=== PATIENT | male | born 1970 | race Caucasian/White ===

== ENCOUNTER 2017-09-07 12:11 | Inpatient (IN) | payer MEDICAID, SELFPAY | END 2017-09-08 09:25 | disposition home or self-care (01) | DRG 190 | PROVIDERS: Admitting Provider Internal Medicine Adolescent Medicine; Family Provider Internal Medicine Adolescent Medicine; Visit Provider Internal Medicine Adolescent Medicine | DX: J44.0 Chronic obstructive pulmonary disease with (acute) lower respiratory infection (principal); J15.7 Pneumonia due to Mycoplasma pneumoniae; Z99.81 Dependence on supplemental oxygen; J44.1 Chronic obstructive pulmonary disease with (acute) exacerbation | CPT/HCPCS: 36415; 71020; 80053; 85025; 86738; 87040; 87486; 87581; 87633; 87798; 94640; 94760; G0378; J0456 ==

== ENCOUNTER 2017-09-22 21:15 | Inpatient (IN) | payer MEDICAID, SELFPAY | END 2017-09-25 12:55 | disposition home or self-care (01) | DRG 192 | PROVIDERS: Admitting Provider Internal Medicine Adolescent Medicine; Emergency Provider Emergency Medicine; Family Provider Internal Medicine Adolescent Medicine; Visit Provider Internal Medicine Adolescent Medicine | DX: J44.1 Chronic obstructive pulmonary disease with (acute) exacerbation (principal); Z99.81 Dependence on supplemental oxygen | CPT/HCPCS: 36415; 71010; 71275; 80048; 80053; 80202; 82550; 82553; 82962; 83605; 84484; 85025; 85378; 87040; 87275; 87276; 87486; 87581; 87633; 87798; 93005; 93041; 94640; 94760; 96365; 96367; 96375; 99285; J0692; J1956; J3370; Q9967 ==

== ENCOUNTER 2017-12-08 10:42 | Observation (INO) | payer MEDICAID, SELFPAY ==
--- NOTE | 2017-12-08 10:53 | XR_ITS ---
XR chest 2V COMPARISON: PA and lateral chest 09/07/2017 HISTORY: Cough and fever TECHNIQUE: PA and lateral chest FINDINGS: Accentuated bronchovascular markings are seen in both lower lobes as described previously and consistent with chronic bronchitis. However there is slightly more prominent bronchovascular markings in the left lower lung field within the lingula on the lateral projection suggesting early pneumonic infiltrate. The remainder lung cee are clear. Cardiac size is normal and is no pleural fluid. IMPRESSION: Findings consistent with underlying chronic bronchitis suspect minimal lingular pneumonia.
[2017-12-08 11:31] VITALS: BP 131/83; PULSE 131; RESP 22; TEMP 37.2; O2SAT 95; BMI 23.1
[2017-12-08 11:33] VITALS: BMI 23.1
--- NOTE | 2017-12-08 11:34 | PC.NURSE ---
patient has clothes, and slippers and jacket.
[2017-12-08 12:04] LABS: Basophils % 0.1 % (0.1-2.0); Eosinophils # 0.2 K/mm3 (0.0-0.4); Eosinophils % 1.1 % (0.1-12.0); Hematocrit 47.3 % (42.0-52.0); Hemoglobin 15.1 g/dL (14.1-18.0); Lymphocytes # 1.2 K/mm3 (0.7-4.5); Lymphocytes % 6.1 K/mm3 (10-50); Mean Corpuscular Hemoglobin 29.4 pg (27.0-31.2); Mean Corpuscular Volume 91.9 fl (80-94); Mean Platelet Volume 7.5 fl (7.4-10.4); Monocytes # 1.1 K/mm3 (0.1-1.0); Monocytes % 5.6 % (1.7-9.3); Neutrophils # 16.8 K/mm3 (1.8-7.8); Neutrophils % 87.2 % (37.0-80.0); Platelet Count 252 K/mm3 (142-424); Red Blood Count 5.14 M/mm3 (4.60-6.20); Red Cell Distribution Width 14.4 % (11.5-17.5); White Blood Count 19.3 K/mm3 (4.8-10.8)
[2017-12-08 12:05] LABS: MANUAL DIFFERENTIAL MANUAL DIFFERENTIAL (MANUAL DIFF)
[2017-12-08 12:10] LABS: Magnesium 1.7 mg/dL (1.4-2.2)
[2017-12-08 12:15] LABS: Anion Gap 11.1 mEq/L (5-15); Blood Urea Nitrogen 13 mg/dL (7-18); Carbon Dioxide 28 mmol/L (21.0-32.0); Chloride 103 mmol/L (98-107); Creatine Kinase 58 U/L (39-308); Creatinine Clearance Estimated 101 mL/min (0-300); Creatinine,Serum 0.97 mg/dL (0.70-1.30); Estimated Glomerular Filt Rate 82 ml/min (>60); GFR (African American) 100 ML/MIN (>60); Glucose 100 mg/dL (74-106); Potassium 4.1 mmoL/L (3.5-5.1); Sodium 138 mmol/L (136-145)
[2017-12-08 12:17] LABS: Lactic Acid 0.6 mmol/L (0.4-2.0)
[2017-12-08 12:30] LABS: Eosinophils % 1 % (0-3); Lymphocytes % 7 % (10-50); Monocytes % 3 % (2-9); Neutrophils % 89 % (42-76); Platelet Estimate Normal; RBC Morphology Normal; Total Cells Counted 100
[2017-12-08 13:19] VITALS: PULSE 129; PULSE 138; O2SAT 88
[2017-12-08 13:26] LABS: Mycoplasma Pneumo IGM (Rapid) Non-Reactive (Non-Reactiv)
--- NOTE | 2017-12-08 13:29 | HMH.HP ---
*Admission Date: 12/08/17 *Chief complaint: Cough, fever, shortness of breath *History of present illness: 47 yr old male with history of severe COPD, supplemental oxygen dependent, presented to our office today with complaint of cough, shortness of breath and malaise above baseline. Tmax 101 at home. He reports no relief with xopenex nebulizer treatments at home and that he is scared to go to sleep . On exam he was febrile, tachycardic, with increased work of breathing and was admitted for hospital management of COPD exacerbation, likely due to acute infection. [facility] History Medical History: Reports:: Anxiety, Home Oxygen, Hyperlipidemia, Hypertension Denies:: Cancer, Diabetes Mellitus Type 1, Diabetes Mellitus Type 2, MRSA Other Medical History: Reports: Arthritis Other Surgeries: Yes: Other Amputation: No Fractures: No Comment: removal of kidney stones - *Social History Educational Level: Attended High School Smoking Status: Former smoker Tobacco Type: cigarettes # Packs/Day (cigarettes): 1 Smoking End Date: 2015 Alcohol Intake: never Occupational Status: disabled Housing: house Household Members: spouse, children - Psychiatric History Expresses thoughts of harming self/others: None Suicide Plan Description: No Plan Pschychiatric History:: Reports:: Anxiety, Post Traumatic Stress Disorder, Psychiatric Treatment *Family Hx:: No significant family history Review of Systems - Review of Systems Review of systems:: pertinent systems reviewed and negative unless documented below - Constitutional Reports body ache(s), Reports chills, Reports fatigue, Reports fever(s), Reports weakness - ENT Reports nasal discharge, Reports sore throat - *Cardiovascular Reports shortness of breath - *Respiratory Reports change in phlegm color, Reports chest congestion, Reports cough, Reports shortness of breath, Reports pain with cough, Reports wheezing - *Gastrointestinal Reports vomiting Meds Home Medications Medication Instructions Recorded Confirmed Type Ibuprofen [Ibuprofen 600mg Tab] 600 mg PO TID 12/08/17 12/08/17 History Naproxen [Naprosyn 500mg tablet] 500 mg PO BID 12/08/17 12/08/17 History Allergies Allergy/AdvReac Type Severity Reaction Status Date / Time No Known Drug Allergies Allergy Unknown Unverified 09/19/17 14:46 [NKDA] Exam Vital signs and Labs for Last 24 Hours: Temp Pulse Resp BP Pulse Ox 98.9 F 138 H 22 131/83 88 L 12/08/17 11:31 12/08/17 13:19 12/08/17 11:31 12/08/17 11:31 12/08/17 13:19 Laboratory Results - last 24 hr 12/08/17 11:48: WBC 19.3 H, RBC 5.14, Hgb 15.1, Hct 47.3, MCV 91.9, MCH 29.4, MCHC 32.0, RDW 14.4, Plt Count 252, MPV 7.5, Neut % (Auto) 87.2 H, Lymph % (Auto) 6.1 L, [place] % (Auto) 5.6, Eos % (Auto) 1.1, Baso % (Auto) 0.1, Neut # (Auto) 16.8 H, Lymph # (Auto) 1.2, [place] # (Auto) 1.1 H, Eos # (Auto) 0.2, Baso # (Auto) 0.0, Total Counted 100, Neutrophils % (Manual) 89 H, Lymphocytes % (Manual) 7 L, Monocytes % (Manual) 3, Eosinophils % (Manual) 1, Platelet Estimate Normal, RBC Morphology Normal 12/08/17 11:48: Sodium 138, Potassium 4.1, Chloride 103, Carbon Dioxide 28, Anion Gap 11.1, BUN 13, Creatinine 0.97, Estimated Creat Clear 101, Estimated GFR 82, Est GFR ( Amer) 100, Glucose 100, Total Creatine Kinase 58 12/08/17 11:48: Mycoplasma pneumon IgM Non-reactive 12/08/17 11:48: Magnesium 1.7 12/08/17 11:48: Lactic Acid 0.6 I & O for Last 24 hours: Intake & Output 12/06/17 12/07/17 12/08/17 12/09/17 11:59 11:59 11:59 11:59 Weight 170 lb 1 oz Narrative: Drowsy male upon entering exam room but alert during exam. ENT exam with mild pharyngeal erythema, mild nasal congestion, TM's normal. Neck supple without masses. Heart with RRR, no murmur, tachycardic, normal cap refill. Lungs with diffuse wheezes and rhonchi, use of abdominal muscles, increased respiratory rate. Extremities are without edema. Skin without acute rashes, clammy. Oriented
--- NOTE | 2017-12-08 13:32 | P.HP_ITS ---
*Admission Date: 12/08/17 *Chief complaint: Cough, fever, shortness of breath *History of present illness: 47 yr old male with history of severe COPD, supplemental oxygen dependent, presented to our office today with complaint of cough, shortness of breath and malaise above baseline. Tmax 101 at home. He reports no relief with xopenex nebulizer treatments at home and that he is scared to go to sleep . On exam he was febrile, tachycardic, with increased work of breathing and was admitted for hospital management of COPD exacerbation, likely due to acute infection. [facility] History Medical History: Reports:: Anxiety, Home Oxygen, Hyperlipidemia, Hypertension Denies:: Cancer, Diabetes Mellitus Type 1, Diabetes Mellitus Type 2, MRSA Other Medical History: Reports: Arthritis Other Surgeries: Yes: Other Amputation: No Fractures: No Comment: removal of kidney stones - *Social History Educational Level: Attended High School Smoking Status: Former smoker Tobacco Type: cigarettes # Packs/Day (cigarettes): 1 Smoking End Date: 2015 Alcohol Intake: never Occupational Status: disabled Housing: house Household Members: spouse, children - Psychiatric History Expresses thoughts of harming self/others: None Suicide Plan Description: No Plan Pschychiatric History:: Reports:: Anxiety, Post Traumatic Stress Disorder, Psychiatric Treatment *Family Hx:: No significant family history Review of Systems - Review of Systems Review of systems:: pertinent systems reviewed and negative unless documented below - Constitutional Reports body ache(s), Reports chills, Reports fatigue, Reports fever(s), Reports weakness - ENT Reports nasal discharge, Reports sore throat - *Cardiovascular Reports shortness of breath - *Respiratory Reports change in phlegm color, Reports chest congestion, Reports cough, Reports shortness of breath, Reports pain with cough, Reports wheezing - *Gastrointestinal Reports vomiting Meds Home Medications Medication Instructions Recorded Confirmed Type Ibuprofen [Ibuprofen 600mg Tab] 600 mg PO TID 12/08/17 12/08/17 History Naproxen [Naprosyn 500mg tablet] 500 mg PO BID 12/08/17 12/08/17 History Allergies Allergy/AdvReac Type Severity Reaction Status Date / Time No Known Drug Allergies Allergy Unknown Unverified 09/19/17 14:46 [NKDA] Exam Vital signs and Labs for Last 24 Hours: Temp Pulse Resp BP Pulse Ox 98.9 F 138 H 22 131/83 88 L 12/08/17 11:31 12/08/17 13:19 12/08/17 11:31 12/08/17 11:31 12/08/17 13:19 Laboratory Results - last 24 hr 12/08/17 11:48: WBC 19.3 H, RBC 5.14, Hgb 15.1, Hct 47.3, MCV 91.9, MCH 29.4, MCHC 32.0, RDW 14.4, Plt Count 252, MPV 7.5, Neut % (Auto) 87.2 H, Lymph % (Auto ) 6.1 L, [place] % (Auto) 5.6, Eos % (Auto) 1.1, Baso % (Auto) 0.1, Neut # (Auto) 16.8 H, Lymph # (Auto) 1.2, [place] # (Auto) 1.1 H, Eos # (Auto) 0.2, Baso # (Auto ) 0.0, Total Counted 100, Neutrophils % (Manual) 89 H, Lymphocytes % (Manual) 7 L, Monocytes % (Manual) 3, Eosinophils % (Manual) 1, Platelet Estimate Normal, RBC Morphology Normal 12/08/17 11:48: Sodium 138, Potassium 4.1, Chloride 103, Carbon Dioxide 28, Anion Gap 11.1, BUN 13, Creatinine 0.97, Estimated Creat Clear 101, Estimated GFR 82, Est GFR ( Amer) 100, Glucose 100, Total Creatine Kinase 58 12/08/17 11:48: Mycoplasma pneumon IgM Non-reactive 12/08/17 11:48: Magnesium 1.7 12/08/17 11:48: Lactic Acid 0.6 I & O for Last 24 hours: Intake & Ou
[2017-12-08 16:00] VITALS: BP 129/76; PULSE 110; RESP 20; TEMP 36.7; O2SAT 93
[2017-12-08 16:12] LABS: Adenovirus,PCR Not Detected (NotDetected); Bordetella Pertussis Not Detected (NotDetected); Chlamydophila Pneumoniae, PCR Not Detected (NotDetected); Coronavirus 229E Not Detected (NotDetected); Coronavirus NL63 Not Detected (NotDetected); Coronavirus OC43 Not Detected (NotDetected); Coronovirus HKU1,PCR Not Detected (NotDetected); Human Metapneumovirus Not Detected (NotDetected); Influenza A, PCR Not Detected (NotDetected); Influenza AH1, 2009 Not Detected (NotDetected); Influenza AH1, PCR Not Detected (NotDetected); Influenza AH3,PCR Not Detected (NotDetected); Influenza B, PCR Not Detected (NotDetected); Mycoplasma Pneumoniae, PCR Not Detected (NotDected); Parainfluenza 1, PCR Not Detected (NotDetected); Parainfluenza 2, PCR Not Detected (NotDetected); Parainfluenza 3, PCR Not Detected (NotDetected); Parainfluenza 4, PCR Not Detected (NotDetected); Respiratory Syncytial Virus Not Detected (NotDetected); Rhinovirus/Enterovirus Not Detected (NotDetected)
--- NOTE | 2017-12-08 17:48 | PC.NURSE ---
PT IS ALERT AND ORIENTED X4. NO C/O PAIN. NO S/S OF DISTRESS NOTED. VSS. PT REFUSED ABG. IV IS SECURE, PATENT ADND INFUSING IVF. SAFETY MEASURES IN PLACE. WILL CONTINUE TO MONITOR.
[2017-12-08 19:28] VITALS: PULSE 110; O2SAT 95
[2017-12-08 20:00] VITALS: BP 118/76; PULSE 111; RESP 18; TEMP 37.2; O2SAT 91
--- NOTE | 2017-12-08 23:23 | PC.NURSE ---
at 2137 MD notified of pt increased anxiety and pain in the right lower abdominal area, no new orders obtained at this time.
[2017-12-09] VITALS (7 sets, daily range): BP systolic 105–117; BP diastolic 66–77; PULSE 80–101; RESP 16–20; TEMP 36.4–37; O2SAT 89–95
--- NOTE | 2017-12-09 03:00 | PC.NURSE ---
no changes noted from previous assessment, pt A&O x 3, pt appears very anxious about care, pt c/o pain in the lower right quadrant radiating to the lower back, he states he has had kidney stones before and the pain feels similar, pt has rested brief periods this shift, pt states some SOA, pt maintaining O2 sats at or above 90 on 2 L NC, rhonchi noted to auscultation, bowel sounds are active, pt is resting quietly at this time, no acute distress noted, call light in reach, will continue to monitor.
--- NOTE | 2017-12-09 07:07 | PC.NURSE ---
report given to A Bout RN
[2017-12-09 07:12] LABS: Basophils % 0.3 % (0.1-2.0); Eosinophils # 0.3 K/mm3 (0.0-0.4); Eosinophils % 2.3 % (0.1-12.0); Hematocrit 42.7 % (42.0-52.0); Lymphocytes # 1.7 K/mm3 (0.7-4.5); Lymphocytes % 14.2 K/mm3 (10-50); Mean Corpuscular HGB Conc 31.7 g/dL (31.8-35.4); Mean Corpuscular Hemoglobin 29.4 pg (27.0-31.2); Mean Corpuscular Volume 92.9 fl (80-94); Mean Platelet Volume 7.6 fl (7.4-10.4); Monocytes # 0.9 K/mm3 (0.1-1.0); Monocytes % 7.6 % (1.7-9.3); Neutrophils # 9.1 K/mm3 (1.8-7.8); Neutrophils % 75.5 % (37.0-80.0); Platelet Count 214 K/mm3 (142-424); Red Blood Count 4.59 M/mm3 (4.60-6.20); Red Cell Distribution Width 14.3 % (11.5-17.5); White Blood Count 12.1 K/mm3 (4.8-10.8)
[2017-12-09 07:17] LABS: Anion Gap 8.1 mEq/L (5-15); Blood Urea Nitrogen 12 mg/dL (7-18); Carbon Dioxide 32 mmol/L (21.0-32.0); Chloride 106 mmol/L (98-107); Creatinine Clearance Estimated 93 mL/min (0-300); Creatinine,Serum 1.05 mg/dL (0.70-1.30); Estimated Glomerular Filt Rate 75 ml/min (>60); GFR (African American) 91 ML/MIN (>60); Glucose 84 mg/dL (74-106); Potassium 4.1 mmoL/L (3.5-5.1); Sodium 142 mmol/L (136-145)
[2017-12-09 07:25] LABS: Hemoglobin 13.6 g/dL (14.1-18.0)
--- NOTE | 2017-12-09 08:19 | CT_ITS ---
CT abdomen pelvis wo con Ordering Physician: Min Shah MD Patient Age: 47 years: Male HISTORY: ITS.REASON: stone protocol Right-sided abdominal pain with nausea. TECHNIQUE: Helical CT scanning performed the abdomen and pelvis with no oral nor IV contrast utilized. Sagittal coronal reconstructions on CT workstation. COMPARISON :Previous CT abdomen and pelvis 02/05/2015 FINDINGS ======== LUNG BASES,. Airway thickening with slight additional interstitial prominence. Suspect a subtle interstitial infiltrate or edema. Warrants correlation with a follow-up chest film. Yesterday's chest film suggested a increased interstitial prominence since prior studies of which may indeed reflect interstitial pneumonitis or edema. No cardiomegaly or overt CHF felt to be present however on yesterday chest film. The heart is normal in size no no pleural effusions. Linear atelectasis at the lingula anteriorly right middle lobe also slightly more evident today. There is suggestion of a subtle small patchy area of infiltrate at the periphery the right lower lobe on axial image 5 and 6. 2 abdomen/pelvis. Lack of oral and IV contrast decreases sensitivity. Liver with slightly subtle changes which yields a slightly inhomogeneous appearance. If elevated LFTs and may want to consider a follow-up with contrast. Spleen unremarkable. Normal size. Pelvis calcifications Pancreas. Normal size unremarkable. Gallbladder. Partially contracted no gallstones no biliary ductal dilatation Kidneys. Numerous small dense punctate calculi scattered throughout both kidneys. Nonobstructive. The largest calculi measure up to 5 mm .. Majority of these calculi however measuring less than 4 mm. But no hydronephrosis currently. No additional acute renal findings. Ureters unremarkable. Bladder upper normal wall thickness. Prostate unremarkable. Pelvis a satisfactory. No fluid. GI tract. Large bowel:Moderate stool throughout right colon right and transverse colon. Minimal stool left colon and rectosigmoid. Upper normal wall thickness at sigmoid colon likely reflecting baseline appearance also upper normal wall thickness at the right colon. May reflect lack of distention... No bowel dilatation or obstruction. Terminal ileum appears normal. Appendix not well visualized partially obscured by adjacent noncontrast bowel loops. It appears normal to upper normal in caliber. No associated inflammation. If there should be increased clinical concern regarding the appendix a follow-up study with oral and IV contrast to be suggested to more optimally visualized. However no significantly suspicious findings for acute appendicitis currently. Small bowel. Moderate fluid throughout a few small air-fluid levels but upper normal in caliber. No bowel dilatation nor obstruction. Osseous structures: no lesion. Dextroscoliosis thoracolumbar spine with marked disc space narrowing L1/2 is again observed and progressive since 2015 lower abdominal aorta with diffuse calcification but no dilatation. No aneurysm. No retroperitoneal nor mesenteric nor pelvic nor inguinal adenopathy. note: This study was dictated with a voice-recognition system. There may be typographical error is related to such. If they are significant please notify us for corrections IMPRESSION 1. Limited views the lung bases demonstrate Mild airway thickening with suspect subtle diffuse interstitial infiltrate or edema; with suggestion subtle patchy areas of infiltrate periphery of RLL. 2. No acute findings abdomen or pelvis.. 3. Numerous dense punctate calculi in throughout both kidneys again seen but no obstructive uropathy. 4. Appendix not optimally seen but no good evidence of appendicitis on this noncontrast study. (. If appendix becomes of progr
--- NOTE | 2017-12-09 08:20 | HMH.ACPN2 ---
Internal Medicine - PN: Subj *Date: 12/09/17 *Time: 08:20 Interval history: Patient feels a little better from a respiratory perspective. Had several issues with anxiety and some angry outburst yesterday and threatened to leave AGAINST MEDICAL ADVICE a couple of times but did stay through the night and feels somewhat better this morning. He does have some right-sided flank pain and reports some dark urine. He reports the pain radiates into his testicle, it has been going on for about a week but he did not mention it yesterday because he was so concerned about his breathing. Exam Vital signs and Labs for Last 24 Hours: Temp Pulse Resp BP Pulse Ox 98.6 F 80 20 114/77 89 L 12/09/17 07:50 12/09/17 07:50 12/09/17 07:50 12/09/17 07:50 12/09/17 06:31 Laboratory Results - last 24 hr 12/08/17 11:48: WBC 19.3 H, RBC 5.14, Hgb 15.1, Hct 47.3, MCV 91.9, MCH 29.4, MCHC 32.0, RDW 14.4, Plt Count 252, MPV 7.5, Neut % (Auto) 87.2 H, Lymph % (Auto) 6.1 L, [place] % (Auto) 5.6, Eos % (Auto) 1.1, Baso % (Auto) 0.1, Neut # (Auto) 16.8 H, Lymph # (Auto) 1.2, [place] # (Auto) 1.1 H, Eos # (Auto) 0.2, Baso # (Auto) 0.0, Total Counted 100, Neutrophils % (Manual) 89 H, Lymphocytes % (Manual) 7 L, Monocytes % (Manual) 3, Eosinophils % (Manual) 1, Platelet Estimate Normal, RBC Morphology Normal 12/08/17 11:48: Sodium 138, Potassium 4.1, Chloride 103, Carbon Dioxide 28, Anion Gap 11.1, BUN 13, Creatinine 0.97, Estimated Creat Clear 101, Estimated GFR 82, Est GFR ( Amer) 100, Glucose 100, Total Creatine Kinase 58 12/08/17 11:48: Mycoplasma pneumon IgM Non-reactive 12/08/17 11:48: Magnesium 1.7 12/08/17 11:48: Lactic Acid 0.6 12/08/17 16:00: Chlamy pneumoniae PCR Not detected, Adenovirus (PCR) Not detected, B.parapertussis DNA PCR Not detected, Coronavirus OC43 (PCR) Not detected, Coronavirus HKU1 (PCR) Not detected, Coronavirus 229E (PCR) Not detected, Coronavirus NL63 (PCR) Not detected, Human Metapneumovir PCR Not detected, Influenza A (H1) PCR Not detected, Influ A (H1N1/09) PCR Not detected, Influenza A (H3) PCR Not detected, Influenza Type A (PCR) Not detected, Influenza Type B (PCR) Not detected, M. pneumoniae (PCR) Not detected, Parainfluenza 1 (PCR) Not detected, Parainfluenza 2 (PCR) Not detected, Parainfluenza 3 (PCR) Not detected, Parainfluenza 4 (PCR) Not detected, RSV (PCR) Not detected, Entero/Rhino (PCR) Not detected 12/09/17 06:37: WBC 12.1 H D, RBC 4.59 L, Hgb 13.6 L, Hct 42.7, MCV 92.9, MCH 29.4, MCHC 31.7 L, RDW 14.3, Plt Count 214, MPV 7.6, Neut % (Auto) 75.5, Lymph % (Auto) 14.2, [place] % (Auto) 7.6, Eos % (Auto) 2.3, Baso % (Auto) 0.3, Neut # (Auto) 9.1 H, Lymph # (Auto) 1.7, [place] # (Auto) 0.9, Eos # (Auto) 0.3, Baso # (Auto) 0.0 12/09/17 06:37: Sodium 142, Potassium 4.1, Chloride 106, Carbon Dioxide 32, Anion Gap 8.1, BUN 12, Creatinine 1.05, Estimated Creat Clear 93, Estimated GFR 75, Est GFR ( Amer) 91, Glucose 84 I & O for Last 24 hours: Intake & Output 12/06/17 12/07/17 12/08/17 12/09/17 11:59 11:59 11:59 11:59 Intake Total 1516 / 1516 Balance 1516 / 1516 Weight 170 lb 1 oz 170 lb 3 oz Narrative: Patient is pleasant, talkative, lungs continue to have rhonchi and expiratory wheezes throughout his lung cee with bibasilar crackles. Heart rate regular. Abdomen is soft but he does have flank tenderness on the right side without rebound or guarding. Minimal CVA pain on the right as well. No leg edema. Assessment and Plan (1) COPD with exacerbation Current visit: Yes Status: Acute Category: Medical Code(s): J44.1 - Chronic obstructive pulmonary disease with (acute) exacerbation Slight improvement. I have asked respiratory to induce a sputum culture/collection. Continue antipseudomonal coverage given his end-stage emphysema. (2) Fever Current visit: Yes Status: Acute Category: Medical Code(s): R50.9 - Fever, unspecified (3) Leukocytosis Current visit: Yes Status: Acute Categor
--- NOTE | 2017-12-09 08:23 | P.PN_ITS ---
Internal Medicine - PN: Subj *Date: 12/09/17 *Time: 08:20 Interval history: Patient feels a little better from a respiratory perspective. Had several issues with anxiety and some angry outburst yesterday and threatened to leave AGAINST MEDICAL ADVICE a couple of times but did stay through the night and feels somewhat better this morning. He does have some right-sided flank pain and reports some dark urine. He reports the pain radiates into his testicle, it has been going on for about a week but he did not mention it yesterday because he was so concerned about his breathing. Exam Vital signs and Labs for Last 24 Hours: Temp Pulse Resp BP Pulse Ox 98.6 F 80 20 114/77 89 L 12/09/17 07:50 12/09/17 07:50 12/09/17 07:50 12/09/17 07:50 12/09/17 06:31 Laboratory Results - last 24 hr 12/08/17 11:48: WBC 19.3 H, RBC 5.14, Hgb 15.1, Hct 47.3, MCV 91.9, MCH 29.4, MCHC 32.0, RDW 14.4, Plt Count 252, MPV 7.5, Neut % (Auto) 87.2 H, Lymph % (Auto ) 6.1 L, [place] % (Auto) 5.6, Eos % (Auto) 1.1, Baso % (Auto) 0.1, Neut # (Auto) 16.8 H, Lymph # (Auto) 1.2, [place] # (Auto) 1.1 H, Eos # (Auto) 0.2, Baso # (Auto ) 0.0, Total Counted 100, Neutrophils % (Manual) 89 H, Lymphocytes % (Manual) 7 L, Monocytes % (Manual) 3, Eosinophils % (Manual) 1, Platelet Estimate Normal, RBC Morphology Normal 12/08/17 11:48: Sodium 138, Potassium 4.1, Chloride 103, Carbon Dioxide 28, Anion Gap 11.1, BUN 13, Creatinine 0.97, Estimated Creat Clear 101, Estimated GFR 82, Est GFR ( Amer) 100, Glucose 100, Total Creatine Kinase 58 12/08/17 11:48: Mycoplasma pneumon IgM Non-reactive 12/08/17 11:48: Magnesium 1.7 12/08/17 11:48: Lactic Acid 0.6 12/08/17 16:00: Chlamy pneumoniae PCR Not detected, Adenovirus (PCR) Not detected, B.parapertussis DNA PCR Not detected, Coronavirus OC43 (PCR) Not detected, Coronavirus HKU1 (PCR) Not detected, Coronavirus 229E (PCR) Not detected, Coronavirus NL63 (PCR) Not detected, Human Metapneumovir PCR Not detected, Influenza A (H1) PCR Not detected, Influ A (H1N1/09) PCR Not detected , Influenza A (H3) PCR Not detected, Influenza Type A (PCR) Not detected, Influenza Type B (PCR) Not detected, M. pneumoniae (PCR) Not detected, Parainfluenza 1 (PCR) Not detected, Parainfluenza 2 (PCR) Not detected, Parainfluenza 3 (PCR) Not detected, Parainfluenza 4 (PCR) Not detected, RSV (PCR ) Not detected, Entero/Rhino (PCR) Not detected 12/09/17 06:37: WBC 12.1 H D, RBC 4.59 L, Hgb 13.6 L, Hct 42.7, MCV 92.9, MCH 29.4, MCHC 31.7 L, RDW 14.3, Plt Count 214, MPV 7.6, Neut % (Auto) 75.5, Lymph % (Auto) 14.2, [place] % (Auto) 7.6, Eos % (Auto) 2.3, Baso % (Auto) 0.3, Neut # ( Auto) 9.1 H, Lymph # (Auto) 1.7, [place] # (Auto) 0.9, Eos # (Auto) 0.3, Baso # ( Auto) 0.0 12/09/17 06:37: Sodium 142, Potassium 4.1, Chloride 106, Carbon Dioxide 32, Anion Gap 8.1, BUN 12, Creatinine 1.05, Estimated Creat Clear 93, Estimated GFR 75, Est GFR ( Amer) 91, Glucose 84 I & O for Last 24 hours: Intake & Output 12/06/17 12/07/17 12/08/17 12/09/17 11:59 11:59 11:59 11:59 Intake Total 1516 / 1516 Balance 1516 / 1516 Weight 170 lb 1 oz 170 lb 3 oz Narrative: Patient is pleasant, talkative, lungs continue to have rhonchi and expiratory wheezes throughout his lung cee with bibasilar crackles. Heart rate regular. Abdomen is soft but he does have flank tenderness on the right side without rebound or guarding. Minimal CVA pain on the right as well. No leg edema. Assessment and Plan (1) COPD with exacerbation Current visit: Yes Status: Acute Category: Medical Code(s): J44.1 - C
--- NOTE | 2017-12-09 10:55 | P.CONPHA_ITS ---
[facility] Pharmacy VTE Monitoring - Patient Demographics Admission date: 12/08/17 Report Date: 12/09/17 Time: 10:55 Allergies/Adverse Reactions: Patient Allergies No Known Drug Allergies [NKDA] Allergy (Unknown, Verified 12/08/17 19:59) Height: 1.83 m Weight: 77.196 kg Patient Problems: Current Active Problems COPD with exacerbation (Acute) Fever (Acute) Leukocytosis (Acute) Right flank pain (Acute) Depression with anxiety (Chronic) - VTE Risk Labs: VTE Related Lab Results Hgb 13.6 g/dL (14.1-18.0) L 12/09/17 06:37 Hct 42.7 % (42.0-52.0) 12/09/17 06:37 Plt Count 214 K/mm3 (142-424) 12/09/17 06:37 BUN 12 mg/dL (7-18) 12/09/17 06:37 Creatinine 1.05 mg/dL (0.70-1.30) 12/09/17 06:37 Estimated Creat Clear 93 mL/min (0-300) 12/09/17 06:37 Was VTE Risk Assessment Performed: No VTE Risk Level: Very Low Risk - Prophylaxis VTE Prophylaxis Ordered?: Yes Types of VTE Prophylaxis: TEDS Knee High Location of Applied Device: Bilateral Lower Extremeties
[2017-12-09 13:15] LABS: Microscopic, Urine URINE MICROSCOPIC (MICROSCOPIC)
[2017-12-09 13:17] LABS: Appearance,Urine CLEAR (Clear); Bilirubin,Urine Negative (Negative); Blood, Urine Negative (Negative); Color,Urine YELLOW (Yellow); Glucose,Urine (UA) Negative (Negative); Ketones,Urine Negative (Negative); Leukocyte Esterase,Urine Negative (Negative); Nitrate,Urine Negative (Negative); Protein,Urine Negative (Negative); Urobilinogen,Urine >=8.0 EU/dl (0.2)
[2017-12-09 13:38] LABS: Mucus,Urine Trace /lpf; Squamous Epithelial Cell,Urine Occasional #/hpf (0-5)
[2017-12-10] VITALS (11 sets, daily range): BP systolic 124–158; BP diastolic 67–96; PULSE 65–110; RESP 16–22; TEMP 36.6–36.9; O2SAT 91–95
--- NOTE | 2017-12-10 03:20 | PC.NURSE ---
no changes noted from previous assessment, pt c/o pain in the right flank area 03/11, pt states he is SOA with activity, pt maintaining O2 sats at or above 90 on 2 L NC, rhonchi noted to auscultation, bowel sounds are active, pt has slept most of shift, pt currently resting in bed with eyes closed, no acute distress noted, call light in reach, will continue to monitor.
[2017-12-10 06:06] LABS: Basophils % 0.4 % (0.1-2.0); Eosinophils # 0.4 K/mm3 (0.0-0.4); Eosinophils % 3.5 % (0.1-12.0); Hematocrit 42.6 % (42.0-52.0); Hemoglobin 13.2 g/dL (14.1-18.0); Lymphocytes % 19.7 K/mm3 (10-50); Mean Corpuscular HGB Conc 31.1 g/dL (31.8-35.4); Mean Corpuscular Hemoglobin 28.9 pg (27.0-31.2); Mean Corpuscular Volume 93.1 fl (80-94); Mean Platelet Volume 7.5 fl (7.4-10.4); Monocytes # 0.6 K/mm3 (0.1-1.0); Monocytes % 6.2 % (1.7-9.3); Neutrophils # 7.3 K/mm3 (1.8-7.8); Neutrophils % 70.3 % (37.0-80.0); Platelet Count 228 K/mm3 (142-424); Red Blood Count 4.57 M/mm3 (4.60-6.20); Red Cell Distribution Width 14.5 % (11.5-17.5); White Blood Count 10.3 K/mm3 (4.8-10.8)
[2017-12-10 06:20] LABS: Blood Urea Nitrogen 9 mg/dL (7-18); Carbon Dioxide 32 mmol/L (21.0-32.0); Chloride 109 mmol/L (98-107); Creatinine Clearance Estimated 97 mL/min (0-300); Creatinine,Serum 1.02 mg/dL (0.70-1.30); Estimated Glomerular Filt Rate 78 ml/min (>60); GFR (African American) 94 ML/MIN (>60); Glucose 96 mg/dL (74-106); Sodium 143 mmol/L (136-145)
--- NOTE | 2017-12-10 07:15 | PC.NURSE ---
report given to A Bout
--- NOTE | 2017-12-10 08:40 | P.PN_ITS ---
Internal Medicine - PN: Subj *Date: 12/10/17 *Time: 08:39 Interval history: Patient continues to struggle with some right-sided flank pain. His breathing is somewhat better. Exam Vital signs and Labs for Last 24 Hours: Temp Pulse Resp BP Pulse Ox 98.5 F 110 H 22 124/71 94 L 12/10/17 07:54 12/10/17 07:54 12/10/17 07:54 12/10/17 07:54 12/10/17 06:34 Laboratory Results - last 24 hr 12/09/17 12:55: Urine Color Yellow, Urine Appearance Clear, Urine pH 7.0, Ur Specific [place] 1.010, Urine Protein Negative, Urine Glucose (UA) Negative, Urine Ketones Negative, Urine Blood Negative, Urine Nitrate Negative, Urine Bilirubin Negative, Urine Urobilinogen >=8.0, Ur Leukocyte Esterase Negative, Ur Squamous Epith Cells Occasional, Urine Mucus Trace 12/10/17 05:55: WBC 10.3, RBC 4.57 L, Hgb 13.2 L, Hct 42.6, MCV 93.1, MCH 28.9, MCHC 31.1 L, RDW 14.5, Plt Count 228, MPV 7.5, Neut % (Auto) 70.3, Lymph % (Auto ) 19.7, [place] % (Auto) 6.2, Eos % (Auto) 3.5, Baso % (Auto) 0.4, Neut # (Auto) 7.3, Lymph # (Auto) 2.0, [place] # (Auto) 0.6, Eos # (Auto) 0.4, Baso # (Auto) 0.0 12/10/17 05:55: Sodium 143, Potassium 4.0, Chloride 109 H, Carbon Dioxide 32, Anion Gap 6.0, BUN 9, Creatinine 1.02, Estimated Creat Clear 97, Estimated GFR 78, Est GFR ( Amer) 94, Glucose 96 I & O for Last 24 hours: Intake & Output 12/07/17 12/08/17 12/09/17 12/10/17 11:59 11:59 11:59 12:59 Intake Total 1666 / 1666 2963 / 2963 Balance 1666 / 1666 2963 / 2963 Weight 170 lb 1 oz 170 lb 3 oz 172 lb 1 oz Microbiology Reports for the Last 24 Hours: Microbiology 12/09/17 09:37 Sputum - Expectorated Sputum Gram Stain - Final 12/09/17 09:37 Sputum - Expectorated Sputum Sputum Culture - Preliminary 12/08/17 11:53 Blood Blood Culture - Preliminary NO GROWTH AFTER 24 HOURS 12/08/17 11:48 Blood Blood Culture - Preliminary NO GROWTH AFTER 24 HOURS Narrative: Bilateral air movement is improved bilaterally. Overall it still compromised with some tight wheezing, along with some minimal rhonchi. Abdomen soft, flank tenderness is unchanged. Heart rate regular. No perfusion deficits. Assessment and Plan (1) COPD with exacerbation Current visit: Yes Status: Acute Category: Medical Code(s): J44.1 - Chronic obstructive pulmonary disease with (acute) exacerbation (2) Fever Current visit: Yes Status: Acute Category: Medical Code(s): R50.9 - Fever , unspecified (3) Leukocytosis Current visit: Yes Status: Acute Category: Medical Code(s): D72.829 - Elevated white blood cell count, unspecified (4) Right flank pain Current visit: Yes Status: Acute Category: Medical Code(s): R10.9 - Unspecified abdominal pain (5) Depression with anxiety Current visit: Yes Status: Chronic Category: Medical Code(s): F41.8 - Other specified anxiety disorders - Assessment and plan all Dx Assessment and Plan for all problems:: Status improving. CT scan reviewed showing nonobstructive nephrolithiasis. Toradol for pain. Continue plan for lung disease/pneumonia.
[2017-12-11 03:18] VITALS: O2SAT 93
--- NOTE | 2017-12-11 03:47 | PC.NURSE ---
no changes noted from previous assessment, pt states his breathing is better and denies pain, he states he feels some better today, rhonchi and wheezing noted to auscultation, pt currently on 2L NC, O2 sats remain at or above 90, bowel sounds are active, pt has rested well this shift, no acute distress noted at this time, call light in reach, will continue to monitor.
[2017-12-11 04:00] VITALS: BP 130/83; PULSE 99; RESP 20; TEMP 36.8; O2SAT 90
[2017-12-11 06:07] VITALS: PULSE 106; O2SAT 88
--- NOTE | 2017-12-11 06:18 | PC.NURSE ---
report given to Tez Cao Rn
[2017-12-11 07:23] LABS: Anion Gap 9.6 mEq/L (5-15); Blood Urea Nitrogen 7 mg/dL (7-18); Carbon Dioxide 32 mmol/L (21.0-32.0); Chloride 108 mmol/L (98-107); Creatinine Clearance Estimated 95 mL/min (0-300); Creatinine,Serum 1.05 mg/dL (0.70-1.30); Estimated Glomerular Filt Rate 75 ml/min (>60); GFR (African American) 91 ML/MIN (>60); Glucose 88 mg/dL (74-106); Potassium 3.6 mmoL/L (3.5-5.1); Sodium 146 mmol/L (136-145)
[2017-12-11 08:01] LABS: Basophils % 0.3 % (0.1-2.0); Eosinophils # 0.3 K/mm3 (0.0-0.4); Eosinophils % 3.2 % (0.1-12.0); Hematocrit 44.6 % (42.0-52.0); Lymphocytes # 2.1 K/mm3 (0.7-4.5); Lymphocytes % 23.7 K/mm3 (10-50); Mean Corpuscular HGB Conc 31.4 g/dL (31.8-35.4); Mean Corpuscular Volume 92.3 fl (80-94); Mean Platelet Volume 7.6 fl (7.4-10.4); Monocytes # 0.6 K/mm3 (0.1-1.0); Neutrophils # 5.9 K/mm3 (1.8-7.8); Neutrophils % 65.8 % (37.0-80.0); Platelet Count 261 K/mm3 (142-424); Red Blood Count 4.83 M/mm3 (4.60-6.20); Red Cell Distribution Width 14.4 % (11.5-17.5); White Blood Count 8.9 K/mm3 (4.8-10.8)
--- NOTE | 2017-12-11 08:44 | HMH.DCSUM ---
General - General Admission date: 12/08/17 Discharge date: 12/11/17 HPI HPI: 47 yr old male with history of severe COPD, supplemental oxygen dependent, presented to our office today with complaint of cough, shortness of breath and malaise above baseline. Tmax 101 at home. He reports no relief with xopenex nebulizer treatments at home and that he is scared to go to sleep . On exam he was febrile, tachycardic, with increased work of breathing and was admitted for hospital management of COPD exacerbation, likely due to acute infection. Hospital Course Hospital Course: Patient was admitted, placed on dual coverage for Pseudomonas therapy. He did well with this although continue to have his baseline dyspnea and wheezing. He also developed some right flank pain. Was found to have nonobstructive kidney stones. Toradol was ineffective with pain but he was able to pass urine and had no significant urine abnormalities. Sputum culture was nondiagnostic. He improved to his baseline, and this morning was wishing to go home. He will be discharged home on Augmentin as prescribed, prednisone, short-term follow-up in my office. Objective Vital signs: Temp Pulse Resp BP Pulse Ox 98.2 F 106 H 20 130/83 88 L 12/11/17 04:00 12/11/17 06:07 12/11/17 04:00 12/11/17 04:00 12/11/17 06:07 Narrative: This morning patient is awake, alert, eating breakfast. Lungs have rhonchi and some minimal wheezing but much clearer, no areas of crackles. Much less dyspneic. No perfusion deficits, heart rate regular. Normal skin turgor. Abdomen soft. Results Labs on day of discharge: Labs from last 24 hours 12/11/17 12/11/17 06:37 06:37 WBC 8.9 RBC 4.83 Hgb 14.0 L Hct 44.6 MCV 92.3 MCH 29.0 MCHC 31.4 L RDW 14.4 Plt Count 261 MPV 7.6 Neut % (Auto) 65.8 Lymph % (Auto) 23.7 [place] % (Auto) 7.0 Eos % (Auto) 3.2 Baso % (Auto) 0.3 Neut # (Auto) 5.9 Lymph # (Auto) 2.1 [place] # (Auto) 0.6 Eos # (Auto) 0.3 Baso # (Auto) 0.0 Sodium 146 H Potassium 3.6 Chloride 108 H Carbon Dioxide 32 Anion Gap 9.6 BUN 7 Creatinine 1.05 Estimated Creat Clear 95 Estimated GFR 75 Est GFR ( Amer) 91 Glucose 88 Preliminary micro results at discharge 12/08/17 11:53 Blood Culture - Preliminary Blood NO GROWTH AFTER 48 HOURS 12/08/17 11:48 Blood Culture - Preliminary Blood NO GROWTH AFTER 48 HOURS DS: Diagnosis - Discharge Diagnosis (1) COPD with exacerbation Status: Acute (2) Fever Status: Acute (3) Leukocytosis Status: Acute (4) Right flank pain Status: Acute (5) Depression with anxiety Status: Chronic Discharge Plan - Patient Discharge Instructions ACTIVITY: Continue current activity DIET: continue same diet - Follow up Plan Follow up with: iMn Shah MD [Primary Care Provider] - 12/15/17 Disposition: Home, Self-Long Term Medications: Home Medications Medication Instructions Recorded Confirmed Type Famotidine [Pepcid] 20 mg PO BID 12/08/17 12/08/17 History Fluticasone/Vilanterol [Breo 1 each IH DAILY 12/08/17 12/08/17 History Ellipta 200-25 Mcg INH] Gabapentin [Neurontin 600mg 600 mg PO TID 12/08/17 12/08/17 History tablet] Ibuprofen [Ibuprofen 600mg Tab] 600 mg PO TID 12/08/17 12/08/17 History Levalbuterol HCl [Xopenex 3 ml INHALATION Q6 12/08/17 12/09/17 History 1.25mg/3mL neb] Naproxen [Naprosyn 500mg tablet] 500 mg PO BID 12/08/17 12/08/17 History Quetiapine Fumarate [Seroquel] 200 mg PO HS 12/08/17 12/08/17 History Duloxetine HCl 60 mg PO DAILY 12/09/17 12/09/17 History Tiotropium [place] [Spiriva 1 puff IH DAILY 12/09/17 12/09/17 History 18mcg/puff inhaler] Prescriptions/Medication Reconciliation: New Amoxicillin/Potassium Clav [Augmentin 875-125 Tablet] 1 tab PO Q12H 7 Days #14 tab predniSONE [Prednisone 20mg Tab] 20 mg PO DAILY 10 Days #5 tab Cont
--- NOTE | 2017-12-11 08:48 | P.DS_ITS ---
General - General Admission date: 12/08/17 Discharge date: 12/11/17 HPI HPI: 47 yr old male with history of severe COPD, supplemental oxygen dependent, presented to our office today with complaint of cough, shortness of breath and malaise above baseline. Tmax 101 at home. He reports no relief with xopenex nebulizer treatments at home and that he is scared to go to sleep . On exam he was febrile, tachycardic, with increased work of breathing and was admitted for hospital management of COPD exacerbation, likely due to acute infection. Hospital Course Hospital Course: Patient was admitted, placed on dual coverage for Pseudomonas therapy. He did well with this although continue to have his baseline dyspnea and wheezing. He also developed some right flank pain. Was found to have nonobstructive kidney stones. Toradol was ineffective with pain but he was able to pass urine and had no significant urine abnormalities. Sputum culture was nondiagnostic. He improved to his baseline, and this morning was wishing to go home. He will be discharged home on Augmentin as prescribed, prednisone, short-term follow-up in my office. Objective Vital signs: Temp Pulse Resp BP Pulse Ox 98.2 F 106 H 20 130/83 88 L 12/11/17 04:00 12/11/17 06:07 12/11/17 04:00 12/11/17 04:00 12/11/17 06:07 Narrative: This morning patient is awake, alert, eating breakfast. Lungs have rhonchi and some minimal wheezing but much clearer, no areas of crackles. Much less dyspneic. No perfusion deficits, heart rate regular. Normal skin turgor. Abdomen soft. Results Labs on day of discharge: Labs from last 24 hours 12/11/17 12/11/17 06:37 06:37 WBC 8.9 RBC 4.83 Hgb 14.0 L Hct 44.6 MCV 92.3 MCH 29.0 MCHC 31.4 L RDW 14.4 Plt Count 261 MPV 7.6 Neut % (Auto) 65.8 Lymph % (Auto) 23.7 [place] % (Auto) 7.0 Eos % (Auto) 3.2 Baso % (Auto) 0.3 Neut # (Auto) 5.9 Lymph # (Auto) 2.1 [place] # (Auto) 0.6 Eos # (Auto) 0.3 Baso # (Auto) 0.0 Sodium 146 H Potassium 3.6 Chloride 108 H Carbon Dioxide 32 Anion Gap 9.6 BUN 7 Creatinine 1.05 Estimated Creat Clear 95 Estimated GFR 75 Est GFR ( Amer) 91 Glucose 88 Preliminary micro results at discharge 12/08/17 11:53 Blood Culture - Preliminary Blood NO GROWTH AFTER 48 HOURS 12/08/17 11:48 Blood Culture - Preliminary Blood NO GROWTH AFTER 48 HOURS DS: Diagnosis - Discharge Diagnosis (1) COPD with exacerbation Status: Acute (2) Fever Status: Acute (3) Leukocytosis Status: Acute (4) Right flank pain Status: Acute (5) Depression with anxiety Status: Chronic Discharge Plan - Patient Discharge Instructions ACTIVITY: Continue current activity DIET: continue same diet - Follow up Plan Follow up with: Min Shah MD [Primary Care Provider] - 12/15/17 Disposition: Home, Self-[facility] Medications: Home Medications Medication Instructions Recorded Confirmed Type Famotidine [Pepcid] 20 mg PO BID 12/08/17 12/08/17 History Fluti
[2017-12-11 08:59] VITALS: BP 139/88; PULSE 100; RESP 16; TEMP 36.5; O2SAT 92
--- NOTE | 2017-12-11 09:34 | HMH.ACPN ---
Internal Medicine - PN: Subj *Date: 12/11/17 *Time: 09:34 Exam Vital signs and Labs for Last 24 Hours: Temp Pulse Resp BP Pulse Ox 97.7 F 100 H 16 139/88 92 L 12/11/17 08:59 12/11/17 08:59 12/11/17 08:59 12/11/17 08:59 12/11/17 08:59 Laboratory Results - last 24 hr 12/11/17 06:37: WBC 8.9, RBC 4.83, Hgb 14.0 L, Hct 44.6, MCV 92.3, MCH 29.0, MCHC 31.4 L, RDW 14.4, Plt Count 261, MPV 7.6, Neut % (Auto) 65.8, Lymph % (Auto) 23.7, [place] % (Auto) 7.0, Eos % (Auto) 3.2, Baso % (Auto) 0.3, Neut # (Auto) 5.9, Lymph # (Auto) 2.1, [place] # (Auto) 0.6, Eos # (Auto) 0.3, Baso # (Auto) 0.0 12/11/17 06:37: Sodium 146 H, Potassium 3.6, Chloride 108 H, Carbon Dioxide 32, Anion Gap 9.6, BUN 7, Creatinine 1.05, Estimated Creat Clear 95, Estimated GFR 75, Est GFR ( Amer) 91, Glucose 88 I & O for Last 24 hours: Intake & Output 12/08/17 12/09/17 12/10/17 12/11/17 22:59 22:59 23:59 23:59 Intake Total 637 / 637 Balance 637 / 637 Weight 78.953 kg Microbiology Reports for the Last 24 Hours: Microbiology 12/09/17 09:37 Sputum - Expectorated Sputum Gram Stain - Final 12/09/17 09:37 Sputum - Expectorated Sputum Sputum Culture - Final Normal Respiratory [place] 12/08/17 11:53 Blood Blood Culture - Preliminary NO GROWTH AFTER 48 HOURS 12/08/17 11:48 Blood Blood Culture - Preliminary NO GROWTH AFTER 48 HOURS Assessment and Plan (1) COPD with exacerbation Current visit: Yes Status: Acute Category: Medical Code(s): J44.1 - Chronic obstructive pulmonary disease with (acute) exacerbation (2) Fever Current visit: Yes Status: Acute Category: Medical Code(s): R50.9 - Fever, unspecified (3) Leukocytosis Current visit: Yes Status: Acute Category: Medical Code(s): D72.829 - Elevated white blood cell count, unspecified (4) Right flank pain Current visit: Yes Status: Acute Category: Medical Code(s): R10.9 - Unspecified abdominal pain (5) Depression with anxiety Current visit: Yes Status: Chronic Category: Medical Code(s): F41.8 - Other specified anxiety disorders The patient's infection will respond to the chosen ABx?: Yes Is the patient receiving the right drug, dose, and route?: Yes Could a more targeted ABx be ordered?: No (HOME ON PO AUGMENTIN)
== END 2017-12-11 09:52 | disposition home or self-care (01) ==
PROVIDERS: Nurse Practitioner Family; Admitting Provider Internal Medicine Adolescent Medicine; PCP Internal Medicine Adolescent Medicine; Visit Provider Internal Medicine Adolescent Medicine
DX: J43.9 Emphysema, unspecified (principal); Z99.81 Dependence on supplemental oxygen; Z87.891 Personal history of nicotine dependence; I10 Essential (primary) hypertension; F41.8 Other specified anxiety disorders; F43.10 Post-traumatic stress disorder, unspecified
CPT/HCPCS: 36415; 71046; 74176; 80048; 81001; 82550; 82803; 83605; 83735; 85007; 85025; 86738; 87040; 87070; 87205; 87486; 87581; 87633; 87798; 94640; 94760; 94761; G0378; J1956; J2405; J2543

== ENCOUNTER → 2018-02-06 11:31 | Outpatient (POV) | payer MEDICAID, SELFPAY | PROVIDERS: Visit Provider Internal Medicine | DX: Z00.00 Encounter for general adult medical examination without abnormal findings (principal) ==

== ENCOUNTER → 2018-03-09 09:37 | Outpatient (CLI) | payer MEDICAID, SELFPAY ==
[2018-03-09 10:47] VITALS: PULSE 81
[2018-03-09 11:15] VITALS: BP 130/95; PULSE 84; RESP 18; O2SAT 95
[2018-03-09 11:33] VITALS: BP 120/94; PULSE 85; RESP 22; O2SAT 95
== END ==
PROVIDERS: Family Provider Emergency Medicine; PCP Internal Medicine Adolescent Medicine; Visit Provider Internal Medicine
DX: J44.9 Chronic obstructive pulmonary disease, unspecified (principal)
CPT/HCPCS: 94060; 94618; 94640; 94726; 94729

== ENCOUNTER → 2018-03-20 08:58 | Outpatient (POV) | payer MEDICAID, SELFPAY | PROVIDERS: Family Provider Emergency Medicine; PCP Internal Medicine Adolescent Medicine; Visit Provider Internal Medicine | DX: Z00.00 Encounter for general adult medical examination without abnormal findings (principal) ==

== ENCOUNTER → 2018-03-20 10:06 | Outpatient (CLI) | payer MEDICAID, SELFPAY ==
--- NOTE | 2018-03-20 10:15 | XR_ITS ---
XR chest 2V HISTORY: ITS.REASON: COPD ORDERING PHYSICIAN: Shahla Mccoy PATIENT AGE: 47 years COMPARISON: 12/08/2017 FINDINGS: The cardiomediastinal silhouette and pulmonary vascularity are within normal limits. COPD with hyperinflation and attenuation of the peripheral pulmonary vessels. No lobar consolidation or collapse. No acute bony anomalies. IMPRESSION: COPD, no change with no acute finding
[2018-03-20 10:55] LABS: Basophils # 0.1 K/mm3 (0-0.2); Basophils % 0.5 % (0.1-2.0); Eosinophils # 0.3 K/mm3 (0.0-0.4); Eosinophils % 2.7 % (0.1-12.0); Hematocrit 51.8 % (42.0-52.0); Hemoglobin 16.3 g/dL (14.1-18.0); Lymphocytes # 2.3 K/mm3 (0.7-4.5); Lymphocytes % 24.9 K/mm3 (10-50); Mean Corpuscular HGB Conc 31.5 g/dL (31.8-35.4); Mean Corpuscular Volume 88.8 fl (80-94); Mean Platelet Volume 7.3 fl (7.4-10.4); Monocytes # 0.6 K/mm3 (0.1-1.0); Monocytes % 6.9 % (1.7-9.3); Platelet Count 258 K/mm3 (142-424); Red Blood Count 5.84 M/mm3 (4.60-6.20); Red Cell Distribution Width 13.9 % (11.5-17.5); White Blood Count 9.2 K/mm3 (4.8-10.8)
[2018-03-20 11:47] LABS: Alanine Aminotransferase 19 U/L (12-78); Albumin Level 3.8 gm/dL (3.4-5.0); Albumin/Globulin Ratio 1.3 (1.1-1.8); Alkaline Phosphatase 89 U/L (46-116); Anion Gap 11.6 mEq/L (5-15); Aspartate Amino Transferase 16 U/L (15-37); Bilirubin,Total 0.6 mg/dL (0.2-1.0); Blood Urea Nitrogen 16 mg/dL (7-18); Carbon Dioxide 32 mmol/L (21.0-32.0); Chloride 101 mmol/L (98-107); Creatinine,Serum 1.08 mg/dL (0.70-1.30); Estimated Glomerular Filt Rate 73 ml/min (>60); GFR (African American) 88 ML/MIN (>60); Globulin 2.9 gm/dl (1.3-3.2); Glucose 103 mg/dL (74-106); Potassium 4.6 mmoL/L (3.5-5.1); Sodium 140 mmol/L (136-145); Total Protein,Serum 6.7 gm/dL (6.4-8.2)
[2018-03-23 20:01] LABS: Immunoglobulin E, Total 15 IU/mL (0-100)
== END ==
PROVIDERS: PCP Internal Medicine Adolescent Medicine; Visit Provider Nurse Practitioner Family
DX: J44.0 Chronic obstructive pulmonary disease with (acute) lower respiratory infection (principal); R53.83 Other fatigue; Z79.899 Other long term (current) drug therapy
CPT/HCPCS: 36415; 71046; 80053; 82785; 85025; 93005

== ENCOUNTER → 2018-04-30 20:07 | Outpatient (CLI) | payer MEDICAID, SELFPAY | PROVIDERS: PCP Internal Medicine Adolescent Medicine; Visit Provider Internal Medicine | DX: G47.9 Sleep disorder, unspecified (principal); G47.19 Other hypersomnia | CPT/HCPCS: 95810 ==

== ENCOUNTER 2018-05-07 20:23 | Observation (INO) ==
[2018-05-07 20:45] LABS: Appearance,Urine CLEAR (Clear); Bilirubin,Urine Negative (Negative); Blood, Urine TRACE-I (Negative); Color,Urine YELLOW (Yellow); Glucose,Urine (UA) Negative (Negative); Ketones,Urine Negative (Negative); Leukocyte Esterase,Urine Negative (Negative); Microscopic, Urine URINE MICROSCOPIC (MICROSCOPIC); Protein,Urine Negative (Negative); Specific Gravity, Urine 1.015 (1.005-1.030); Urobilinogen,Urine 0.2 EU/dl (0.2)
[2018-05-07 21:22] LABS: Basophils % 0.3 % (0.1-2.0); Eosinophils # 0.3 K/mm3 (0.0-0.4); Eosinophils % 2.7 % (0.1-12.0); Hematocrit 50.6 % (42.0-52.0); Hemoglobin 16.6 g/dL (14.1-18.0); Lymphocytes # 2.2 K/mm3 (0.7-4.5); Lymphocytes % 17.4 K/mm3 (10-50); Mean Corpuscular HGB Conc 32.8 g/dL (31.8-35.4); Mean Corpuscular Volume 88.4 fl (80-94); Monocytes # 0.5 K/mm3 (0.1-1.0); Monocytes % 4.1 % (1.7-9.3); Neutrophils # 9.3 K/mm3 (1.8-7.8); Neutrophils % 75.5 % (37.0-80.0); Platelet Count 244 K/mm3 (142-424); Red Blood Count 5.72 M/mm3 (4.60-6.20); Red Cell Distribution Width 14.1 % (11.5-17.5); White Blood Count 12.4 K/mm3 (4.8-10.8)
[2018-05-07 21:37] LABS: Albumin Level 3.5 gm/dL (3.4-5.0); Anion Gap 6.3 mEq/L (5-15); Bilirubin,Total 0.7 mg/dL (0.2-1.0); Calcium 8.9 mg/dL (8.5-10.1); Globulin 3.5 gm/dl (1.3-3.2); Potassium 4.3 mmoL/L (3.5-5.1)
[2018-05-07 22:09] LABS: Bacteria,Urine Trace /lpf; RBC,Urine Occasional #/hpf (0-3)
--- NOTE | 2018-05-07 23:39 | Emergency Department Note ---
ED Disposition Clinical Impression: Colitis Disposition: Admitted as Observation Condition on Discharge: Good Instructions: DI for Acute Abdomen Referrals: Min Shah MD [Primary Care Provider] - - Critical Care Critical Care Time: No Attestation: On 05/07/18, the high probability of a clinically significant, sudden or life threatening deterioration of the following system(s) required my full and direct attention, intervention and personal management. The time I documented below is in addition to time spent performing reported procedures but includes the following listed in this critical care notation. Medical Decision Making - Medical Records Medical records reviewed: Yes: I reviewed the patient's medical records. - Colin Inquiry Pt receiving controlled substance: No Vital Signs: 05/07/18 20:27 05/07/18 20:34 Temperature 98.4 F 98.4 F Temperature Source Oral Oral Pulse Rate [Right Radial] 98 H 98 H Respiratory Rate 20 20 Blood Pressure [Right Arm] 155/103 155/103 Blood Pressure Mean [Right Arm] 120 120 Blood Pressure Source [Right Arm] Automatic Cuff Automatic Cuff Blood Pressure Position [Right Arm] Sitting Sitting 02 Sat by Pulse Oximetry 98 98 Oxygen Delivery Method Room Air Room Air - Lab Data Lab results reviewed: Yes: I reviewed the patient's lab results. Lab Results 05/07/18 20:40: Urine Color Yellow, Urine Appearance Clear, Urine pH 6.0, Ur Specific [place] 1.015, Urine Protein Negative, Urine Glucose (UA) Negative, Urine Ketones Negative, Urine Blood Trace-i, Urine Nitrate Negative, Urine Bilirubin Negative, Urine Urobilinogen 0.2, Ur Leukocyte Esterase Negative, Urine RBC Occasional, Urine WBC 3-5, Ur Squamous Epith Cells 3-5, Urine Bacteria Trace 05/07/18 21:06: WBC 12.4 H, RBC 5.72, Hgb 16.6, Hct 50.6, MCV 88.4, MCH 29.0, MCHC 32.8, RDW 14.1, Plt Count 244, MPV 7.0 L, Neut % (Auto) 75.5, Lymph % (Auto ) 17.4, [place] % (Auto) 4.1, Eos % (Auto) 2.7, Baso % (Auto) 0.3, Neut # (Auto) 9.3 H, Lymph # (Auto) 2.2, [place] # (Auto) 0.5, Eos # (Auto) 0.3, Baso # (Auto) 0.0 05/07/18 21:06: Sodium 142, Potassium 4.3, Chloride 107, Carbon Dioxide 33 H, Anion Gap 6.3, BUN 11, Creatinine 1.00, Estimated Creat Clear 103, Estimated GFR 79, Est GFR ( Amer) 96, Glucose 94, Calcium 8.9, Total Bilirubin 0.7 , AST 13 L, ALT 25, Alkaline Phosphatase 92, Total Protein 7.0, Albumin 3.5, Globulin 3.5 H, Albumin/Globulin Ratio 1.0 L, Amylase 31, Lipase 46 L 05/07/18 21:35: Stool Occult Blood Positive A 05/07/18 21:39: ESR 6 05/07/18 21:39: Lactate 0.8 05/07/18 21:39: C-Reactive Protein 1.8 H Result diagrams: 05/07/18 21:06 05/07/18 21:06 Orders (Tests/Meds): ED MEDICATIONS Discontinued Medications Generic Name Dose Route Start Last Admin Trade Name [place] PRN Reason Stop Dose Admin Sodium Chloride 1,000 mls @ 999 mls/hr 05/07/18 20:45 05/07/18 20:47 Sod Chlor 0.9% 1000ml Bag IV 05/07/18 21:45 999 mls/hr .Q1H1M NERY Administration Ketorolac Tromethamine 30 mg 05/07/18 20:36 05/07/18 20:47 Toradol 30mg/Ml Vial IV 05/07/18 20:37 30 mg ONCE ONE Administration Morphine Sulfate 2 mg 05/07/18 21:57 05/07/18 21:58 Morphine 2mg/Ml Syringe IV 05/07/18 21:58 2 mg ONCE ONE Administration Ondansetron HCl 4 mg 05/07/18 20:36 05/07/18 20:47 Zofran 4mg/2ml Vial IV 05/07/18 20:37 4 mg ONCE ONE Administration ORDERS Category Date Time Status CT abdomen pelvis wo con Stat Cat Scan 05/07/18 20:35 Taken Diarrhea Panel, PCR Stat Lab 05/07/18 20:35 Ordered - CT Data CT Scan: Abdomen, Pelvis Time Received: 23:[address] Reviewed: Yes: I have viewed the radiologist's interpretation Preliminary Findings: Abnormal (see report in chart ) - Physician Consults Physician Consulted: renyn Reason -: Admission Nausea/Vomiting/Diarrhea HPI - General Chief complaint: Abdominal Pain Stated complaint: pain R side,vomiting,passing blood thur BM Time Seen by Provider: 05/07/18 20:40 Mode of Arrival: Ambulatory Source of Information: Patient, Medical Record ( ) Limitations: No Limitations Description of Symptoms (Recalled from ER Triage Doc. by RN): reports blood in stool. right lower abd pain. - History of Present Illness HPI Narrative: progressive abd pain with bloody stool and has dec po intake over the last few days MD complaint: nausea, vomiting, diarrhea, abdominal pain Onset (ago): day(s) Description of Vomiting: bloody Associated Abdominal Pain: Yes Location of pain: diffuse Severity: moderate Associated symptoms: nausea/vomiting - Related Data Home Medications Medication Instructions Recorded Confirmed Fluticasone/Vilanterol [Breo 1 each IH DAILY 12/08/17 05/07/18 Ellipta 200-25 Mcg INH] Gabapentin [Neurontin 600mg 600 mg PO TID 12/08/17 05/07/18 tablet] Levalbuterol HCl [Xopenex 3 ml INHALATION Q6 12/08/17 05/07/18 1.25mg/3mL neb] Quetiapine Fumarate [Seroquel] 200 mg PO HS 12/08/17 05/07/18 Duloxetine HCl 60 mg PO DAILY 12/09/17 05/07/18 Tiotropium [place] [Spiriva 1 puff IH DAILY 12/09/17 05/07/18 18mcg/puff inhaler] Allergies Allergy/AdvReac Type Severity Reaction Status Date / Time No Known Drug Allergies Allergy Unknown Verified 12/08/17 19:59 [NKDA] [facility] History I have reviewed the patient's past medical history: Yes Medical History: Reports:: Anxiety, Home Oxygen, Hyperlipidemia, Hypertension Denies:: Cancer, Diabetes Mellitus Type 1, Diabetes Mellitus Type 2, Internal Pacemaker, MRSA Other Medical History: Reports: Arthritis Other Surgeries: Yes: Other. No: Pacemaker Amputation: No Fractures: No Comment: removal of kidney stones - Social History Educational Level: Attended High School Smoking Status: Former smoker Tobacco Type: cigarettes # Packs/Day (cigarettes): 1 Alcohol Intake: never Substance Use Type: marijuana Occupational Status: disabled Housing: house Household Members: spouse, children - Psychiatric History Expresses thoughts of harming self/others: None Suicide Plan Description: No Plan Pschychiatric History:: Reports:: Anxiety, Post Traumatic Stress Disorder, Psychiatric Treatment Family Hx:: No significant family history ROS Obtained: Yes All systems reviewed & no additional complaints - Constitutional Constitutional: Denies fever(s) - Eyes Eyes: Denies change in vision - ENT Ears, Nose, Mouth, and Throat: Denies sore throat - Cardiovascular Cardiovascular: Denies chest pain at rest - Respiratory Respiratory: No cough - Gastrointestinal Gastrointestingal: Reports: as per HPI, abdominal pain, bright red blood in stools, nausea, vomiting - Genitourinary Male Genitourinary: Denies flank pain - Musculoskeletal Musculoskeletal: Denies joint pain, Denies joint swelling - Integumentary/Breasts Skin/Breast: Denies rash - Neurologic Neurologic: Denies seizure-like activity Physical Exam - General General appearance: alert, in no apparent distress - Head Head exam: atraumatic - Eye Eye exam: Present: PERRL, EOMI - ENT ENT exam: Present: mucous membranes moist - Neck Neck exam: Present: trachea midline - Respiratory Respiratory exam: Absent: respiratory distress - Cardiovascular Cardiovascular exam: Present: regular rate. Absent: systolic murmur - Abdominal Exam Abdominal exam: Present: soft, tenderness Abdominal tenderness: Present: epigastrium - Extremities Exam Extremities exam: Present: normal inspection - Neurological Exam Neurological exam: Present: alert, oriented X3, CN II-XII intact - Psychiatric Psychiatric exam: Present: normal affect - Skin Skin exam: Absent: rash
[2018-05-08 06:07] LABS: Basophils % 0.1 % (0.1-2.0); Eosinophils # 0.1 K/mm3 (0.0-0.4); Eosinophils % 0.7 % (0.1-12.0); Hematocrit 50.8 % (42.0-52.0); Hemoglobin 16.4 g/dL (14.1-18.0); Lymphocytes # 0.8 K/mm3 (0.7-4.5); Lymphocytes % 6.8 K/mm3 (10-50); Mean Corpuscular HGB Conc 32.3 g/dL (31.8-35.4); Mean Corpuscular Hemoglobin 28.9 pg (27.0-31.2); Mean Corpuscular Volume 89.2 fl (80-94); Mean Platelet Volume 7.2 fl (7.4-10.4); Monocytes # 0.2 K/mm3 (0.1-1.0); Monocytes % 1.5 % (1.7-9.3); Neutrophils # 10.1 K/mm3 (1.8-7.8); Platelet Count 217 K/mm3 (142-424); Red Blood Count 5.69 M/mm3 (4.60-6.20); White Blood Count 11.1 K/mm3 (4.8-10.8)
[2018-05-08 06:25] LABS: Anion Gap 8.8 mEq/L (5-15); Calcium 8.6 mg/dL (8.5-10.1); Potassium 4.8 mmoL/L (3.5-5.1)
--- NOTE | 2018-05-08 07:20 | Pharmacy Consult Notes ---
[facility] Pharmacy VTE Monitoring - Patient Demographics Admission date: 05/07/18 Report Date: 05/08/18 Time: 07:20 Allergies/Adverse Reactions: Patient Allergies No Known Drug Allergies [NKDA] Allergy (Unknown, Verified 12/08/17 19:59) Height: 1.89 m Weight: 78.925 kg Patient Problems: Current Active Problems Colitis (Acute) - VTE Risk Labs: VTE Related Lab Results Hgb 16.4 g/dL (14.1-18.0) 05/08/18 05:42 Hct 50.8 % (42.0-52.0) 05/08/18 05:42 Plt Count 217 K/mm3 (142-424) 05/08/18 05:42 BUN 12 mg/dL (7-18) 05/08/18 05:42 Creatinine 1.00 mg/dL (0.70-1.30) 05/08/18 05:42 Estimated Creat Clear 100 mL/min (0-300) 05/08/18 05:42 VTE Score: 4 VTE Risk Level: Low Risk - Prophylaxis VTE Prophylaxis Ordered?: Yes Types of VTE Prophylaxis: TEDS Knee High Location of Applied Device: Bilateral Lower Extremeties - VTE Diagnosis Confirmed Treatment or plan recommended: Continue Current Treatment
[2018-05-08 07:55] LABS: Lymphocytes % 7 % (10-50); Monocytes % 1 % (2-9); Neutrophils % 91 % (42-76); RBC Morphology Normal; Total Cells Counted 100
--- NOTE | 2018-05-08 12:43 | Consult Report ---
*Admission Date: 05/07/18 *Chief complaint: ABDOMINAL PAIN, VOMITING, DIARRHEA, BLOODY BOWEL MOVEMENT *History of present illness: Patient is a 47-year-old white male. Past medical history is notable mainly for significant COPD with hospitalizations for exacerbations. He states that a couple days ago he had some right lower quadrant pain. This was relatively self -limited. Yesterday morning he had developed some vomiting and also diarrhea. Diarrhea progressed to passage of blood. He describes this is relatively fresh blood. Denies any prior history. Denies any history of ulcer disease. He was seen and evaluated in the emergency department. He underwent CT scan without any contrast whatsoever. This was limited but unremarkable. Surgery was consulted today for possible endoscopic evaluation. He states that the right lower quadrant pain radiates into the right testicle. Review of Systems - Review of Systems Review of systems:: pertinent systems reviewed and negative unless documented below - *Neurologic Denies seizure-like activity [facility] History Medical History: Reports:: Anxiety, Home Oxygen, Hyperlipidemia, Hypertension Denies:: Cancer, Diabetes Mellitus Type 1, Diabetes Mellitus Type 2, Internal Pacemaker, MRSA Other Medical History: Reports: Arthritis Other Surgeries: Yes: Other. No: Pacemaker Amputation: No Fractures: No - *Social History Educational Level: Completed High School Smoking Status: Former smoker Tobacco Type: cigarettes # Packs/Day (cigarettes): 1 Alcohol Intake: never Substance Use Type: marijuana Occupational Status: disabled Housing: house Household Members: spouse, children - Psychiatric History Expresses thoughts of harming self/others: None Suicide Plan Description: No Plan Pschychiatric History:: Reports:: Anxiety, Post Traumatic Stress Disorder, Psychiatric Treatment *Family Hx:: No significant family history Meds Home Medications Medication Instructions Recorded Confirmed Type Gabapentin [Neurontin 600mg 600 mg PO TID 12/08/17 05/07/18 History tablet] Levalbuterol HCl [Xopenex 3 ml INHALATION Q6 12/08/17 05/07/18 History 1.25mg/3mL neb] Quetiapine Fumarate [Seroquel] 200 mg PO HS 12/08/17 05/07/18 History Tiotropium [place] [Spiriva 1 puff IH DAILY 12/09/17 05/07/18 History 18mcg/puff inhaler] Fluticasone Furoate [Arnuity 1 puff INHALATION DAILY 05/08/18 05/08/18 History Ellipta] Allergies Allergy/AdvReac Type Severity Reaction Status Date / Time No Known Drug Allergies Allergy Unknown Verified 12/08/17 19:59 [NKDA] Exam Vital signs and Labs for Last 24 Hours: Temp Pulse Resp BP Pulse Ox 99.8 F H 97 H 18 102/65 93 L 05/08/18 07:30 05/08/18 10:03 05/08/18 07:30 05/08/18 07:30 05/08/18 08:30 Laboratory Results - last 24 hr 05/07/18 20:40: Urine Color Yellow, Urine Appearance Clear, Urine pH 6.0, Ur Specific [place] 1.015, Urine Protein Negative, Urine Glucose (UA) Negative, Urine Ketones Negative, Urine Blood Trace-i, Urine Nitrate Negative, Urine Bilirubin Negative, Urine Urobilinogen 0.2, Ur Leukocyte Esterase Negative, Urine RBC Occasional, Urine WBC 3-5, Ur Squamous Epith Cells 3-5, Urine Bacteria Trace 05/07/18 21:06: WBC 12.4 H, RBC 5.72, Hgb 16.6, Hct 50.6, MCV 88.4, MCH 29.0, MCHC 32.8, RDW 14.1, Plt Count 244, MPV 7.0 L, Neut % (Auto) 75.5, Lymph % (Auto ) 17.4, [place] % (Auto) 4.1, Eos % (Auto) 2.7, Baso % (Auto) 0.3, Neut # (Auto) 9.3 H, Lymph # (Auto) 2.2, [place] # (Auto) 0.5, Eos # (Auto) 0.3, Baso # (Auto) 0.0 05/07/18 21:06: Sodium 142, Potassium 4.3, Chloride 107, Carbon Dioxide 33 H, Anion Gap 6.3, BUN 11, Creatinine 1.00, Estimated Creat Clear 103, Estimated GFR 79, Est GFR ( Amer) 96, Glucose 94, Calcium 8.9, Total Bilirubin 0.7 , AST 13 L, ALT 25, Alkaline Phosphatase 92, Total Protein 7.0, Albumin 3.5, Globulin 3.5 H, Albumin/Globulin Ratio 1.0 L, Amylase 31, Lipase 46 L 05/07/18 21:35: Stool Occult Blood Positive A 05/07/18 21:39: ESR 6 05/07/18 21:39: Lactate 0.8 05/07/18 21:39: C-Reactive Protein 1.8 H 05/08/18 05:42: WBC 11.1 H, RBC 5.69, Hgb 16.4, Hct 50.8, MCV 89.2, MCH 28.9, MCHC 32.3, RDW 14.0, Plt Count 217, MPV 7.2 L, Neut % (Auto) 91.0 H, Lymph % ( Auto) 6.8 L, [place] % (Auto) 1.5 L, Eos % (Auto) 0.7, Baso % (Auto) 0.1, Neut # ( Auto) 10.1 H, Lymph # (Auto) 0.8, [place] # (Auto) 0.2, Eos # (Auto) 0.1, Baso # ( Auto) 0.0, Total Counted 100, Neutrophils % (Manual) 91 H, Band Neutrophils % 1.0, Lymphocytes % (Manual) 7 L, Monocytes % (Manual) 1 L, Platelet Estimate Normal, RBC Morphology Normal 05/08/18 05:42: Sodium 140, Potassium 4.8, Chloride 108 H, Carbon Dioxide 28, Anion Gap 8.8, BUN 12, Creatinine 1.00, Estimated Creat Clear 100, Estimated GFR 79, Est GFR ( Amer) 96, Glucose 138 H D, Calcium 8.6 I & O for Last 24 hours: Intake & Output 05/06/18 05/07/18 05/08/18 05/09/18 11:59 11:59 11:59 11:59 Intake Total 1869 Balance 1869 Weight 174 lb - Constitutional Comments: Uncomfortable - *Routine Abdominal Exam Present: soft Comments: Abdomen is soft. He has some diffuse tenderness. He has some voluntary guarding in the right lower quadrant. He has moderate tenderness in the right upper quadrant. Results - Labs 05/08/18 05:42 05/08/18 05:42 Laboratory Results - last 24 hr 05/07/18 20:40: Urine Color Yellow, Urine Appearance Clear, Urine pH 6.0, Ur Specific [place] 1.015, Urine Protein Negative, Urine Glucose (UA) Negative, Urine Ketones Negative, Urine Blood Trace-i, Urine Nitrate Negative, Urine Bilirubin Negative, Urine Urobilinogen 0.2, Ur Leukocyte Esterase Negative, Urine RBC Occasional, Urine WBC 3-5, Ur Squamous Epith Cells 3-5, Urine Bacteria Trace 05/07/18 21:06: WBC 12.4 H, RBC 5.72, Hgb 16.6, Hct 50.6, MCV 88.4, MCH 29.0, MCHC 32.8, RDW 14.1, Plt Count 244, MPV 7.0 L, Neut % (Auto) 75.5, Lymph % (Auto ) 17.4, [place] % (Auto) 4.1, Eos % (Auto) 2.7, Baso % (Auto) 0.3, Neut # (Auto) 9.3 H, Lymph # (Auto) 2.2, [place] # (Auto) 0.5, Eos # (Auto) 0.3, Baso # (Auto) 0.0 05/07/18 21:06: Sodium 142, Potassium 4.3, Chloride 107, Carbon Dioxide 33 H, Anion Gap 6.3, BUN 11, Creatinine 1.00, Estimated Creat Clear 103, Estimated GFR 79, Est GFR ( Amer) 96, Glucose 94, Calcium 8.9, Total Bilirubin 0.7 , AST 13 L, ALT 25, Alkaline Phosphatase 92, Total Protein 7.0, Albumin 3.5, Globulin 3.5 H, Albumin/Globulin Ratio 1.0 L, Amylase 31, Lipase 46 L 05/07/18 21:35: Stool Occult Blood Positive A 05/07/18 21:39: ESR 6 05/07/18 21:39: Lactate 0.8 05/07/18 21:39: C-Reactive Protein 1.8 H 05/08/18 05:42: WBC 11.1 H, RBC 5.69, Hgb 16.4, Hct 50.8, MCV 89.2, MCH 28.9, MCHC 32.3, RDW 14.0, Plt Count 217, MPV 7.2 L, Neut % (Auto) 91.0 H, Lymph % ( Auto) 6.8 L, [place] % (Auto) 1.5 L, Eos % (Auto) 0.7, Baso % (Auto) 0.1, Neut # ( Auto) 10.1 H, Lymph # (Auto) 0.8, [place] # (Auto) 0.2, Eos # (Auto) 0.1, Baso # ( Auto) 0.0, Total Counted 100, Neutrophils % (Manual) 91 H, Band Neutrophils % 1.0, Lymphocytes % (Manual) 7 L, Monocytes % (Manual) 1 L, Platelet Estimate Normal, RBC Morphology Normal 05/08/18 05:42: Sodium 140, Potassium 4.8, Chloride 108 H, Carbon Dioxide 28, Anion Gap 8.8, BUN 12, Creatinine 1.00, Estimated Creat Clear 100, Estimated GFR 79, Est GFR ( Amer) 96, Glucose 138 H D, Calcium 8.6 Assessment and Plan - Assessment and plan all Dx Assessment and Plan for all problems:: Unclear as to the etiology of the patient's symptoms. I would not proceed with immediate endoscopic evaluation. Possible this could be an enterocolitis which was not visualized on noncontrast CT scan. Given the location of the patient's most significant tenderness possibility of appendicitis could be entertained as well. However, given the reported hematochezia this seems less likely. Plan to obtain CT scan with actual contrast, IV and oral, this afternoon. If this is unremarkable and his symptoms persist may need endoscopic assessment.
--- NOTE | 2018-05-08 13:23 | History & Physical Report ---
*Admission Date: 05/07/18 *Chief complaint: Bright red blood per rectum *History of present illness: Patient is a 47-year-old male with Hx notable for significant COPD with hospitalizations for exacerbations. He states that a couple days ago he had some right lower quadrant pain. This was relatively self-limited. Yesterday morning he had developed some vomiting and also diarrhea. Diarrhea progressed to passage of blood. He describes this is relatively fresh blood. Denies any prior history. Denies any history of ulcer disease. He was seen and evaluated in the emergency department. He underwent CT scan without any contrast whatsoever. This was limited but unremarkable. Surgery was consulted today for possible endoscopic evaluation. He states that the right lower quadrant pain persists however he has had a decrease in stools. No more bloody stool this morning per report. Feeling better though [employer] when his stomach is pushed on. Any fevers, chills, nausea or vomiting today, dizziness or confusion -Complains of some shortness of breath as he has not had his inhalers, persistent abdominal pain [facility] History Medical History: Reports:: Anxiety, Home Oxygen, Hyperlipidemia, Hypertension Denies:: Cancer, Diabetes Mellitus Type 1, Diabetes Mellitus Type 2, Internal Pacemaker, MRSA Other Medical History: Reports: Arthritis Other Surgeries: Yes: Other. No: Pacemaker Amputation: No Fractures: No - *Social History Educational Level: Completed High School Smoking Status: Former smoker Tobacco Type: cigarettes # Packs/Day (cigarettes): 1 Alcohol Intake: never Substance Use Type: marijuana Occupational Status: disabled Housing: house Household Members: spouse, children - Psychiatric History Expresses thoughts of harming self/others: None Suicide Plan Description: No Plan Pschychiatric History:: Reports:: Anxiety, Post Traumatic Stress Disorder, Psychiatric Treatment *Family Hx:: No significant family history Review of Systems - Review of Systems Review of systems:: pertinent systems reviewed and negative unless documented below - *Neurologic Denies seizure-like activity Meds Home Medications Medication Instructions Recorded Confirmed Type Gabapentin [Neurontin 600mg 600 mg PO TID 12/08/17 05/07/18 History tablet] Levalbuterol HCl [Xopenex 3 ml INHALATION Q6 12/08/17 05/07/18 History 1.25mg/3mL neb] Quetiapine Fumarate [Seroquel] 200 mg PO HS 12/08/17 05/07/18 History Tiotropium [place] [Spiriva 1 puff IH DAILY 12/09/17 05/07/18 History 18mcg/puff inhaler] Fluticasone Furoate [Arnuity 1 puff INHALATION DAILY 05/08/18 05/08/18 History Ellipta] Allergies Allergy/AdvReac Type Severity Reaction Status Date / Time No Known Drug Allergies Allergy Unknown Verified 12/08/17 19:59 [NKDA] Exam Vital signs and Labs for Last 24 Hours: Temp Pulse Resp BP Pulse Ox 99.8 F H 97 H 18 102/65 93 L 05/08/18 07:30 05/08/18 10:03 05/08/18 07:30 05/08/18 07:30 05/08/18 08:30 Laboratory Results - last 24 hr 05/07/18 20:40: Urine Color Yellow, Urine Appearance Clear, Urine pH 6.0, Ur Specific [place] 1.015, Urine Protein Negative, Urine Glucose (UA) Negative, Urine Ketones Negative, Urine Blood Trace-i, Urine Nitrate Negative, Urine Bilirubin Negative, Urine Urobilinogen 0.2, Ur Leukocyte Esterase Negative, Urine RBC Occasional, Urine WBC 3-5, Ur Squamous Epith Cells 3-5, Urine Bacteria Trace 05/07/18 21:06: WBC 12.4 H, RBC 5.72, Hgb 16.6, Hct 50.6, MCV 88.4, MCH 29.0, MCHC 32.8, RDW 14.1, Plt Count 244, MPV 7.0 L, Neut % (Auto) 75.5, Lymph % (Auto ) 17.4, [place] % (Auto) 4.1, Eos % (Auto) 2.7, Baso % (Auto) 0.3, Neut # (Auto) 9.3 H, Lymph # (Auto) 2.2, [place] # (Auto) 0.5, Eos # (Auto) 0.3, Baso # (Auto) 0.0 05/07/18 21:06: Sodium 142, Potassium 4.3, Chloride 107, Carbon Dioxide 33 H, Anion Gap 6.3, BUN 11, Creatinine 1.00, Estimated Creat Clear 103, Estimated GFR 79, Est GFR ( Amer) 96, Glucose 94, Calcium 8.9, Total Bilirubin 0.7 , AST 13 L, ALT 25, Alkaline Phosphatase 92, Total Protein 7.0, Albumin 3.5, Globulin 3.5 H, Albumin/Globulin Ratio 1.0 L, Amylase 31, Lipase 46 L 05/07/18 21:35: Stool Occult Blood Positive A 05/07/18 21:39: ESR 6 05/07/18 21:39: Lactate 0.8 05/07/18 21:39: C-Reactive Protein 1.8 H 05/08/18 05:42: WBC 11.1 H, RBC 5.69, Hgb 16.4, Hct 50.8, MCV 89.2, MCH 28.9, MCHC 32.3, RDW 14.0, Plt Count 217, MPV 7.2 L, Neut % (Auto) 91.0 H, Lymph % ( Auto) 6.8 L, [place] % (Auto) 1.5 L, Eos % (Auto) 0.7, Baso % (Auto) 0.1, Neut # ( Auto) 10.1 H, Lymph # (Auto) 0.8, [place] # (Auto) 0.2, Eos # (Auto) 0.1, Baso # ( Auto) 0.0, Total Counted 100, Neutrophils % (Manual) 91 H, Band Neutrophils % 1.0, Lymphocytes % (Manual) 7 L, Monocytes % (Manual) 1 L, Platelet Estimate Normal, RBC Morphology Normal 05/08/18 05:42: Sodium 140, Potassium 4.8, Chloride 108 H, Carbon Dioxide 28, Anion Gap 8.8, BUN 12, Creatinine 1.00, Estimated Creat Clear 100, Estimated GFR 79, Est GFR ( Amer) 96, Glucose 138 H D, Calcium 8.6 I & O for Last 24 hours: Intake & Output 05/05/18 05/06/18 05/07/18 05/08/18 23:59 23:59 23:59 23:59 Intake Total 1100 / 1100 770 / 770 Balance 1100 / 1100 770 / 770 Weight 81.647 kg 78.925 kg - *Routine HEENT Exam Head: Present: normocephalic, atraumatic Eye: Present: EOMI, PERRL ENT: Present: mucous membranes moist - *Routine Neck Exam Present: supple. Absent: lymphadenopathy - *Routine Respiratory Exam Present: prolonged expiratory phase, wheezes (Diffusely bilaterally). Absent: accessory muscle use, CTA bilaterally, rales, crackles - *Routine Cardiovascular Exam Present: RRR, Normal S1, Normal S2. Absent: murmur - *Routine Abdominal Exam Present: soft, normoactive bowel sounds, tenderness (Right lower quadrant > left lower quadrant). Absent: rebound, guarding - *Routine Rectal Exam Patient deferred: visual exam - *Routine Exam Patient deferred: penile exam - *Routine Extremities Exam Present: full ROM. Absent: cyanosis, clubbing, edema - *Routine Skin Exam Present: intact. Absent: cyanosis, erythema - *Routine Neurological Exam Present: alert, oriented X3, CN II-XII intact - Routine Psychiatric Exam Present: normal affect, cooperative H&P: Result - Labs Labs: Short CBC 05/07/18 05/08/18 Range/Units 21:06 05:42 WBC 12.4 H 11.1 H (4.8-10.8) K/mm3 Hgb 16.6 16.4 (14.1-18.0) g/dL Hct 50.6 50.8 (42.0-52.0) % Plt Count 244 217 (142-424) K/mm3 BMP 05/07/18 05/08/18 21:06 05:42 Sodium 142 140 Potassium 4.3 4.8 Chloride 107 108 H Carbon Dioxide 33 H 28 BUN 11 12 Creatinine 1.00 1.00 Glucose 94 138 H D Calcium 8.9 8.6 Liver Function 05/07/18 Range/Units 21:06 Total Bilirubin 0.7 (0.2-1.0) mg/dL AST 13 L (15-37) U/L ALT 25 (12-78) U/L Alkaline Phosphatase 92 (46-116) U/L Albumin 3.5 (3.4-5.0) gm/dL Urine 05/07/18 Range/Units 20:40 Urine Color Yellow (Yellow) Urine Appearance Clear (Clear) Urine pH 6.0 (5.0-8.5) Ur Specific [place] 1.015 (1.005-1.030) Urine Protein Negative (Negative) Urine Glucose (UA) Negative (Negative) Assessment and Plan (1) COPD (chronic obstructive pulmonary disease) Current visit: Yes Status: Acute Category: Medical Code(s): J44.9 - Chronic obstructive pulmonary disease, unspecified (2) Colitis Current visit: Yes Status: Acute Category: Medical Code(s): K52.9 - Noninfective gastroenteritis and colitis, unspecified (3) Depression with anxiety Current visit: No Status: Chronic Category: Medical Code(s): F41.8 - Other specified anxiety disorders - Assessment and plan all Dx Assessment and Plan for all problems:: Mr. Mchugh is a 47-year-old male with acute onset of abdominal pain, nausea vomiting and diarrhea complicated by hematochezia. Painful bloody diarrhea differential diagnosis includes gastroenteritis, entero-colitis, diverticulitis , ischemic colitis. Symptoms of nausea vomiting and diarrhea most consistent with a gastroenteritis or enterocolitis however nessa bloody stool not usually present. Diverticular bleeds tend to be painless. Localization of pain in abdomen most consistent with right lower quadrant/ileocecal region which could be suggestive of ischemic event in watershed area or appendicitis. At this time are improving with fluid resuscitation of care. Surgery consulted to assist with management and possible endoscopy. Repeat CT pending with IV and oral contrast for better assessment and visualization of intra-abdominal pathology. -Supportive care with pain management -Continue IV fluids -Continue n.p.o. pending image findings -Restart home COPD treatment, including DuoNeb -Continue Levaquin and Flagyl pending culture. -If no further episode, tolerates regular diet, improved symptomology, and no need for emergent endoscopy plan for discharge tomorrow
--- NOTE | 2018-05-08 16:53 | Progress Note ---
Subjective Narrative: CT scan with IV contrast relatively unremarkable except for possible spell enteritis. Exam Vital signs and Labs for Last 24 Hours: Temp Pulse Resp BP Pulse Ox 97.9 F 96 H 20 127/71 92 L 05/08/18 15:57 05/08/18 15:57 05/08/18 15:57 05/08/18 15:57 05/08/18 15:57 Laboratory Results - last 24 hr 05/07/18 20:40: Urine Color Yellow, Urine Appearance Clear, Urine pH 6.0, Ur Specific [place] 1.015, Urine Protein Negative, Urine Glucose (UA) Negative, Urine Ketones Negative, Urine Blood Trace-i, Urine Nitrate Negative, Urine Bilirubin Negative, Urine Urobilinogen 0.2, Ur Leukocyte Esterase Negative, Urine RBC Occasional, Urine WBC 3-5, Ur Squamous Epith Cells 3-5, Urine Bacteria Trace 05/07/18 21:06: WBC 12.4 H, RBC 5.72, Hgb 16.6, Hct 50.6, MCV 88.4, MCH 29.0, MCHC 32.8, RDW 14.1, Plt Count 244, MPV 7.0 L, Neut % (Auto) 75.5, Lymph % (Auto ) 17.4, [place] % (Auto) 4.1, Eos % (Auto) 2.7, Baso % (Auto) 0.3, Neut # (Auto) 9.3 H, Lymph # (Auto) 2.2, [place] # (Auto) 0.5, Eos # (Auto) 0.3, Baso # (Auto) 0.0 05/07/18 21:06: Sodium 142, Potassium 4.3, Chloride 107, Carbon Dioxide 33 H, Anion Gap 6.3, BUN 11, Creatinine 1.00, Estimated Creat Clear 103, Estimated GFR 79, Est GFR ( Amer) 96, Glucose 94, Calcium 8.9, Total Bilirubin 0.7 , AST 13 L, ALT 25, Alkaline Phosphatase 92, Total Protein 7.0, Albumin 3.5, Globulin 3.5 H, Albumin/Globulin Ratio 1.0 L, Amylase 31, Lipase 46 L 05/07/18 21:35: Stool Occult Blood Positive A 05/07/18 21:39: ESR 6 05/07/18 21:39: Lactate 0.8 05/07/18 21:39: C-Reactive Protein 1.8 H 05/08/18 05:42: WBC 11.1 H, RBC 5.69, Hgb 16.4, Hct 50.8, MCV 89.2, MCH 28.9, MCHC 32.3, RDW 14.0, Plt Count 217, MPV 7.2 L, Neut % (Auto) 91.0 H, Lymph % ( Auto) 6.8 L, [place] % (Auto) 1.5 L, Eos % (Auto) 0.7, Baso % (Auto) 0.1, Neut # ( Auto) 10.1 H, Lymph # (Auto) 0.8, [place] # (Auto) 0.2, Eos # (Auto) 0.1, Baso # ( Auto) 0.0, Total Counted 100, Neutrophils % (Manual) 91 H, Band Neutrophils % 1.0, Lymphocytes % (Manual) 7 L, Monocytes % (Manual) 1 L, Platelet Estimate Normal, RBC Morphology Normal 05/08/18 05:42: Sodium 140, Potassium 4.8, Chloride 108 H, Carbon Dioxide 28, Anion Gap 8.8, BUN 12, Creatinine 1.00, Estimated Creat Clear 100, Estimated GFR 79, Est GFR ( Amer) 96, Glucose 138 H D, Calcium 8.6 I & O for Last 24 hours: Intake & Output 05/06/18 05/07/18 05/08/18 05/09/18 11:59 11:59 11:59 11:59 Intake Total 1969 Balance 1969 Weight 174 lb Progress Note: A&P (1) COPD (chronic obstructive pulmonary disease) Status: Acute Current Visit: Yes (2) Colitis Status: Acute Current Visit: Yes (3) Depression with anxiety Status: Chronic Current Visit: No Assessment and Plan for All Diagnoses:: Plan for limited liquid diet tonight. Recheck hemoglobin hematocrit tomorrow.
[2018-05-09 07:55] VITALS: BP 112/59
--- NOTE | 2018-05-09 08:10 | Progress Note ---
Internal Medicine - PN: Subj *Date: 05/09/18 *Time: 08:09 Interval history: Patient feels good this morning, he wishes to eat and "I am ready to go home." Exam Vital signs and Labs for Last 24 Hours: Temp Pulse Resp BP Pulse Ox 97.9 F 89 18 112/59 92 L 05/09/18 07:54 05/09/18 07:54 05/09/18 07:54 05/09/18 07:54 05/09/18 07:54 I & O for Last 24 hours: Intake & Output 05/06/18 05/07/18 05/08/18 05/09/18 11:59 11:59 11:59 11:59 Intake Total 1969 Output Total 0 / 0 Balance 1969 Weight 174 lb 178 lb 3 oz Narrative: Patient is alert, pleasant. On. Lungs have some rhonchi consistent with his base COPD but certainly better than his average lung exam. Heart rate regular. Abdomen is soft, nontender. Assessment and Plan (1) COPD (chronic obstructive pulmonary disease) Current visit: Yes Status: Acute Category: Medical Code(s): J44.9 - Chronic obstructive pulmonary disease, unspecified (2) Colitis Current visit: Yes Status: Acute Category: Medical Code(s): K52.9 - Noninfective gastroenteritis and colitis, unspecified (3) Depression with anxiety Current visit: No Status: Chronic Category: Medical Code(s): F41.8 - Other specified anxiety disorders - Assessment and plan all Dx Assessment and Plan for all problems:: Repeat CT scan with contrast is much more reassuring. Patient is improved clinically. We will feed patient today and if labs are okay consider discharge this afternoon with follow-up for endoscopy as an outpatient.
[2018-05-09 08:17] LABS: Basophils % 0.3 % (0.1-2.0); Eosinophils # 0.1 K/mm3 (0.0-0.4); Eosinophils % 0.6 % (0.1-12.0); Hematocrit 42.3 % (42.0-52.0); Lymphocytes # 2.5 K/mm3 (0.7-4.5); Lymphocytes % 20.9 K/mm3 (10-50); Mean Corpuscular HGB Conc 33.1 g/dL (31.8-35.4); Mean Corpuscular Hemoglobin 29.7 pg (27.0-31.2); Mean Corpuscular Volume 89.7 fl (80-94); Mean Platelet Volume 7.2 fl (7.4-10.4); Monocytes # 0.6 K/mm3 (0.1-1.0); Neutrophils # 8.6 K/mm3 (1.8-7.8); Neutrophils % 73.2 % (37.0-80.0); Platelet Count 201 K/mm3 (142-424); Red Blood Count 4.72 M/mm3 (4.60-6.20); Red Cell Distribution Width 14.3 % (11.5-17.5); White Blood Count 11.8 K/mm3 (4.8-10.8)
[2018-05-09 08:38] LABS: Albumin Level 2.8 gm/dL (3.4-5.0); Albumin/Globulin Ratio 1.1 (1.1-1.8); Anion Gap 7.8 mEq/L (5-15); Bilirubin,Total 0.7 mg/dL (0.2-1.0); Calcium 8.2 mg/dL (8.5-10.1); Globulin 2.5 gm/dl (1.3-3.2); Potassium 3.8 mmoL/L (3.5-5.1); Total Protein,Serum 5.3 gm/dL (6.4-8.2)
--- NOTE | 2018-05-09 14:15 | Discharge Summary ---
General - General Admission date:: 05/07/18 Discharge date: 05/09/18 HPI HPI: Patient is a 47-year-old male with Hx notable for significant COPD with hospitalizations for exacerbations. He states that a couple days ago he had some right lower quadrant pain. This was relatively self-limited. Yesterday morning he had developed some vomiting and also diarrhea. Diarrhea progressed to passage of blood. He describes this is relatively fresh blood. Denies any prior history. Denies any history of ulcer disease. He was seen and evaluated in the emergency department. He underwent CT scan without any contrast whatsoever. This was limited but unremarkable. Surgery was consulted today for possible endoscopic evaluation. He states that the right lower quadrant pain persists however he has had a decrease in stools. No more bloody stool this morning per report. 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 Any fevers, chills, nausea or vomiting today, dizziness or confusion -Complains of some shortness of breath as he has not had his inhalers, persistent abdominal pain Hospital Course Hospital Course: Patient did well with abx and steroids and improved. Repeat CT scans showed mild jejunitis. No tumors or perfs. Able to eat today and did well. Exam normalized. D/c with levaquin/steroids and f/u for cscope schedule. Objective Vital signs: Temp Pulse Resp BP Pulse Ox 97.9 F 81 18 112/59 92 L 05/09/18 07:54 05/09/18 13:37 05/09/18 07:54 05/09/18 07:54 05/09/18 07:54 no acute distress, average body habitus - *Routine HEENT Exam Head: Present: normocephalic, atraumatic Eye: Present: EOMI, PERRL - *Routine Neck Exam Present: supple, full ROM - *Routine Respiratory Exam Present: rhonchi (at baseline for patient). Absent: accessory muscle use, prolonged expiratory phase - *Routine Cardiovascular Exam Present: RRR, Normal S1, Normal S2 - *Routine Abdominal Exam Present: soft, normoactive bowel sounds. Absent: tenderness, distended Results Labs on day of discharge: Labs from last 24 hours 05/09/18 05/09/18 07:27 07:27 WBC 11.8 H RBC 4.72 Hgb 14.0 L Hct 42.3 MCV 89.7 MCH 29.7 MCHC 33.1 RDW 14.3 Plt Count 201 MPV 7.2 L Neut % (Auto) 73.2 Lymph % (Auto) 20.9 [place] % (Auto) 5.0 Eos % (Auto) 0.6 Baso % (Auto) 0.3 Neut # (Auto) 8.6 H Lymph # (Auto) 2.5 [place] # (Auto) 0.6 Eos # (Auto) 0.1 Baso # (Auto) 0.0 Sodium 145 Potassium 3.8 D Chloride 111 H Carbon Dioxide 30 Anion Gap 7.8 BUN 14 Creatinine 1.02 Estimated Creat Clear 100 Estimated GFR 78 Est GFR ( Amer) 94 Glucose 98 Calcium 8.2 L Total Bilirubin 0.7 AST 10 L ALT 19 Alkaline Phosphatase 72 Total Protein 5.3 L Albumin 2.8 L D Globulin 2.5 Albumin/Globulin Ratio 1.1 DS: Diagnosis - Discharge Diagnosis (1) COPD (chronic obstructive pulmonary disease) Status: Chronic (2) Colitis Status: Acute (3) Depression with anxiety Status: Chronic Discharge Plan - Patient Discharge Instructions ACTIVITY: Continue current activity DIET: low fat, low cholesterol - Follow up Plan Follow up with: Fish Hurt MD [Staff Physician] - 1 week Disposition: Home, Self-Halfway Medications: Home Medications Medication Instructions Recorded Confirmed Type Gabapentin [Neurontin 600mg 600 mg PO TID 12/08/17 05/07/18 History tablet] Levalbuterol HCl [Xopenex 3 ml INHALATION Q6 12/08/17 05/07/18 History 1.25mg/3mL neb] Quetiapine Fumarate [Seroquel] 200 mg PO HS 12/08/17 05/07/18 History Tiotropium [place] [Spiriva 1 puff IH DAILY 12/09/17 05/07/18 History 18mcg/puff inhaler] Fluticasone Furoate [Arnuity 1 puff INHALATION DAILY 05/08/18 05/08/18 History Ellipta] Prescriptions/Medication Reconciliation: New levoFLOXacin [Levaquin 500mg tab] 500 mg PO DAILY #7 tab predniSONE [Deltasone 20mg tablet] 20 mg PO BID 7 Days #14 tab Continue Quetiapine Fumarate [Seroquel] 200 mg PO HS Levalbuterol HCl [Xopenex 1.25mg/3mL neb] 3 ml INHALATION Q6 Gabapentin [Neurontin 600mg tablet] 600 mg PO TID Tiotropium [place] [Spiriva 18mcg/puff inhaler] 1 puff IH DAILY Fluticasone Furoate [Arnuity Ellipta] 1 puff INHALATION DAILY
--- NOTE | 2018-05-09 14:24 | Progress Note ---
Subjective Patient reports: feels better Narrative: Patient has tolerated a low-fat diet without any symptoms. Denies abdominal pain at this time. No bleeding. Wishes to go home today. Exam Vital signs and Labs for Last 24 Hours: Temp Pulse Resp BP Pulse Ox 97.9 F 81 18 112/59 92 L 05/09/18 07:54 05/09/18 13:37 05/09/18 07:54 05/09/18 07:54 05/09/18 07:54 Laboratory Results - last 24 hr 05/09/18 07:27: WBC 11.8 H, RBC 4.72, Hgb 14.0 L, Hct 42.3, MCV 89.7, MCH 29.7, MCHC 33.1, RDW 14.3, Plt Count 201, MPV 7.2 L, Neut % (Auto) 73.2, Lymph % (Auto ) 20.9, [place] % (Auto) 5.0, Eos % (Auto) 0.6, Baso % (Auto) 0.3, Neut # (Auto) 8.6 H, Lymph # (Auto) 2.5, [place] # (Auto) 0.6, Eos # (Auto) 0.1, Baso # (Auto) 0.0 05/09/18 07:27: Sodium 145, Potassium 3.8 D, Chloride 111 H, Carbon Dioxide 30 , Anion Gap 7.8, BUN 14, Creatinine 1.02, Estimated Creat Clear 100, Estimated GFR 78, Est GFR ( Amer) 94, Glucose 98, Calcium 8.2 L, Total Bilirubin 0.7, AST 10 L, ALT 19, Alkaline Phosphatase 72, Total Protein 5.3 L, Albumin 2.8 L D, Globulin 2.5, Albumin/Globulin Ratio 1.1 I & O for Last 24 hours: Intake & Output 05/07/18 05/08/18 05/09/18 05/10/18 11:59 11:59 11:59 11:59 Intake Total 1969 3259 / 3259 480 / 480 Output Total 0 / 0 Balance 1969 3259 / 3259 480 / 480 Weight 174 lb 178 lb 3 oz - *Routine Abdominal Exam Present: soft. Absent: tenderness Progress Note: A&P (1) COPD (chronic obstructive pulmonary disease) Status: Chronic Current Visit: Yes (2) Colitis Status: Acute Current Visit: Yes (3) Depression with anxiety Status: Chronic Current Visit: No Assessment and Plan for All Diagnoses:: CT scan with contrast relatively unremarkable other than findings of possible enteritis. Stomach and duodenum are unremarkable. Colon revealed no evidence of any obvious colitis. Clinically doing well. Should be reasonable to discharge home with outpatient follow-up.
== END 2018-05-09 14:55 | disposition home or self-care (01) ==
LOC: ER 20:23 → 2ND 20:23
PROVIDERS: ADMIT Family Medicine; ATTEND Internal Medicine Adolescent Medicine

== ENCOUNTER → 2018-05-22 13:12 | Outpatient (CLI) | payer MEDICAID, SELFPAY ==
--- NOTE | 2018-05-22 13:20 | XR_ITS ---
XR humerus LT CLINICAL INDICATION: ITS.REASON: LEFT UPPER ARM PAIN, ORDERING PHYSICIAN: Min Shah MD PATIENT AGE: 47 years Comparison: None FINDINGS: There are osteoarthritic changes of the acromioclavicular joint with subacromial stenosis. The humerus and glenohumeral joint have an unremarkable appearance. IMPRESSION: Subacromial stenosis with acromioclavicular arthropathy otherwise negative left humerus
--- NOTE | 2018-05-22 13:20 | XR_ITS ---
XR elbow LT min 3V HISTORY: ITS.REASON: LEFT UPPER ARM PAIN ORDERING PHYSICIAN: Min Shah MD PATIENT AGE: 47 years COMPARISON: None FINDINGS: BONY STRUCTURES: No fracture or dislocation. No lytic or blastic change. Normal mineralization. SOFT TISSUES: Unremarkable. No radio opaque foreign bodies. No displaced fat pad. JOINT SPACE: Well-preserved. No significant arthritic changes evident. IMPRESSION: Negative elbow.
== END ==
PROVIDERS: PCP Internal Medicine Adolescent Medicine; Visit Provider Internal Medicine Adolescent Medicine
DX: M79.622 Pain in left upper arm (principal); M79.602 Pain in left arm
CPT/HCPCS: 73060; 73080

== ENCOUNTER → 2018-06-20 10:20 | Outpatient (CLI) | payer MEDICAID, SELFPAY ==
--- NOTE | 2018-06-20 10:25 | XR_ITS ---
XR shoulder LT min 2V Ordering Physician: Saúl Rodriguez MD Patient Age: 47 years: Male HISTORY: ITS.REASON: lt shoulder pain TECHNIQUE: 3 view left shoulder. Supraspinatus view, AP view, axillary view COMPARISON :No shoulder studies previous chest film March 2018 left humerus 05/22/2018 FINDINGS Glenohumeral joint intact. Humeral head and neck intact. Hypertrophic changes AC joint with moderate degenerative changes. Moderate spurring including spurring extending inferiorly. May encroach upon supraspinatus no fracture nor dislocation. IMPRESSION: AC joint arthropathy.. With Mild/moderate hypertrophy . Glenohumeral joint intact
--- NOTE | 2018-06-20 12:03 | XR_ITS ---
XR cervical spine 2V Ordering Physician: Saúl Rodriguez MD Patient Age: 47 years: Male HISTORY: ITS.REASON: neck pain Numbness left arm TECHNIQUE: AP lateral and odontoid view cervical spine. 3 view C-spine. COMPARISON :None FINDINGS Normal C1-C2 relationships. Normal odontoid. There is normal alignment of C-spine with normal prevertebral soft tissues. However we do see evidence of cervical spondylosis and degenerative disc changes. Posteriorly C3/4 there. Posterior endplate hypertrophic spurring most evident. Mild disc space narrowing C3/4 C5/6. Degenerative disc space narrowing with minor posterior hypertrophic ridging. Oblique views may be helpful to further evaluate for foraminal encroachment. C6-C7 mild disc space narrowing. Early anterior marginal ossified C5-C6 & C6-C7. IMPRESSION: Degenerative disc changes and cervical spondylosis,, most notable posterior spurring at C3/4 posteriorly; followed by C5/ C6.
== END ==
PROVIDERS: PCP Internal Medicine Adolescent Medicine; Visit Provider Orthopaedic Surgery
DX: M25.512 Pain in left shoulder (principal); M54.2 Cervicalgia
CPT/HCPCS: 72040; 73030

== ENCOUNTER → 2018-07-02 11:35 | Outpatient (POV) | payer MEDICAID, SELFPAY ==
--- NOTE | 2018-07-02 11:39 | XR_ITS ---
XR chest 2V HISTORY: ITS.REASON: COUGH ORDERING PHYSICIAN: Elizabeth Petit MD PATIENT AGE: 47 years COMPARISON: None FINDINGS: The cardiomediastinal silhouette and pulmonary vascularity are within normal limits. There is hyperinflation with attenuation of the peripheral pulmonary vessels consistent with COPD. Bronchial thickening also noted. No lobar consolidation or collapse. No acute bony anomalies. IMPRESSION: COPD, no change with no acute finding
== END ==
PROVIDERS: Family Provider Emergency Medicine; PCP Internal Medicine Adolescent Medicine; Visit Provider Specialist
DX: M25.532 Pain in left wrist (principal); R05 Cough
CPT/HCPCS: 71046; 95886; 95908

== ENCOUNTER → 2018-07-10 13:23 | Outpatient (CLI) | payer MEDICAID, SELFPAY | PROVIDERS: Family Provider Emergency Medicine; PCP Internal Medicine Adolescent Medicine; Visit Provider Orthopaedic Surgery | DX: M54.5 Low back pain (principal); M25.512 Pain in left shoulder ==

== ENCOUNTER → 2018-07-18 09:59 | Outpatient (CLI) | payer MEDICAID, SELFPAY ==
--- NOTE | 2018-07-18 10:00 | MR_ITS ---
MR cervical spine wo con, MR 3-d myelogram/MRCP Ordering Physician: Antonio Betancourt MD Patient Age: 47 years: Male HISTORY: ITS.REASON: neck pain 1 year neck pain. Left side . Left arm pain extends to elbow. Numbness of both the hand. TECHNIQUE: Sagittal STIR, T1, T2, axial T1 and T2. On 1.5T Siemens wide bore MRI. 3-D MR myelogram image set obtained & performed on MRI workstation. Additional sagittal thin section T2 weighted dataset obtained from this latter acquisition as well (---76 CPT) COMPARISON :Plain film C-spine 06/20/2018 FINDINGS Multilevel cervical spondylosis and degenerative changes Cervical cranial junction appears satisfactory. C2/C3. Disc intact & satisfactory. Neural foramen widely patent C3/4. Disc space narrowing.. Cervical spondylosis.. Posterior osteophytic ridging. Loosely joint hypertrophy bilaterally most pronounced the left. The spurring here indents the anterior aspect of thecal sac to the left>right paracentral region.... Spurring continues towards the lateral recess region but does not significantly encroach upon foramen C4/5. Disc intact. Unremarkable C5/6. Disc space narrowing. Posterior hypertrophic ridging-fairly Generous Bilaterally uncovertebral joint hypertrophy bilaterally (right only slightly more prominent than left). Spurring here indents the thecal sac right & left paracentral region. Mild/moderate encroachment upon right recess and entry both right & left foramen and lateral. Axial slice 41 recesses. C6/7Mild disc space narrowing & cervical spondylosis. Mild Diffuse posterior hypertrophic endplate ridging. Mild central disc protrusion with mild hard disc the left.. This slightly indents the thecal sac to the left and yields mild/moderate left foraminal encroachment. There is increased signal C6 vertebral body most evident midline and superior C7. This likely reflect reactive degenerative bone changes about this degenerated disc most likely. No expansion or other features of vertebral body to raise concern. C7/T1, T1/T2 disc intact T2/T3. Trace spur and minor disc prominence, left paracentral region. 3-D MRI myelogram image set demonstrates anterior indentation upon the thecal sac to the right and left of midline at C3/4. Also indentation upon the thecal sac anteriorly to the right> left at C 5/6 due to the posterior spurring/uncovertebral joint hypertrophy to the right more so than left. IMPRESSION: ... Degenerative disc changes and cervical spondylosis most evident at C5/6 followed by C 3/4. With slightly Less pronounced degenerative disc changes and spondylosis C6/7 C5/6. Degenerated disc with posterior spurring indenting thecal sac right and left paracentral (reflecting generous uncovertebral joint hypertrophy) & encroach upon entry of foramen bilaterally C3/4. Moderate Posterior spurring effaces the thecal sac to the right & left paracentral regions. (Bilateral uncovertebral joint hypertrophy). C6/7: small central disc protrusion with mild hard disc to the left, slightly indenting thecal sac to the left but not a moderate left foraminal encroachment
== END ==
PROVIDERS: Family Provider Emergency Medicine; PCP Internal Medicine Adolescent Medicine; Visit Provider Orthopaedic Surgery
DX: M54.2 Cervicalgia (principal); M25.512 Pain in left shoulder
CPT/HCPCS: 72141; 76376

== ENCOUNTER → 2018-07-30 09:08 | Outpatient (CLI) | payer MEDICAID, SELFPAY | PROVIDERS: PCP Internal Medicine Adolescent Medicine; Visit Provider General Practice | DX: J44.1 Chronic obstructive pulmonary disease with (acute) exacerbation (principal) | CPT/HCPCS: 36415; 86480 ==

== ENCOUNTER → 2019-01-07 13:23 | Outpatient (POV) | payer MEDICAID, SELFPAY | PROVIDERS: Visit Provider Internal Medicine | DX: Z00.00 Encounter for general adult medical examination without abnormal findings (principal) ==

== ENCOUNTER → 2019-01-25 09:37 | Outpatient (CLI) | payer MEDICAID, SELFPAY ==
--- NOTE | 2019-01-25 09:44 | XR_ITS ---
XR chest 2V HISTORY: ITS.REASON: ASPIRATION PNEUMONIA, BROCHIECTASIS ORDERING PHYSICIAN: Saúl Kendall MD PATIENT AGE: 48 years COMPARISON: 07/28/2018 FINDINGS: There is COPD with chronic changes. Increased markings are present in the region of the right middle lobe or lingula on the lateral view consistent with an area of atelectasis or infiltrate not readily. On 07/02/2018. Hyperinflation with attenuation of peripheral pulmonary vessels and bronchial thickening noted. No acute bony findings. IMPRESSION: COPD with atelectasis or infiltrate within either the right middle lobe or lingula not readily apparent on the frontal view
== END ==
PROVIDERS: PCP Internal Medicine Adolescent Medicine; Visit Provider Internal Medicine
DX: J69.0 Pneumonitis due to inhalation of food and vomit (principal); J47.9 Bronchiectasis, uncomplicated
CPT/HCPCS: 71046

== ENCOUNTER → 2019-04-23 14:37 | Outpatient (POV) | payer MEDICAID, SELFPAY ==
--- NOTE | 2019-04-23 16:04 | XR_ITS ---
XR chest 2V HISTORY: ITS.REASON: OBSTRUCTIVE CHRONIC BRONCHITIS WITH ACUTE BRONCHITIS ORDERING PHYSICIAN: Saúl Kendall MD PATIENT AGE: 48 years COMPARISON: None FINDINGS: The cardiomediastinal silhouette and pulmonary vascularity are within normal limits. There are oblique group of strands of increased density in the subpleural area along the lower lateral left hemithorax. These are not present on the prior study. There is now mild blunting of the left lateral and posterior costophrenic angles.. There are some prominent love of the bronchi is at the right suprahilar area and this is stable suggesting some bronchial wall thickening. No acute bony abnormalities. IMPRESSION: Linear atelectasis or scarring lung the left lateral lower hemithorax which could be in the lingula and projected over the heart on the lateral view. Small left-sided pleural effusion. Possible chronic right suprahilar bronchial wall thickening could be early mild bronchiectasis.
== END ==
PROVIDERS: Visit Provider Internal Medicine
DX: J18.9 Pneumonia, unspecified organism (principal); J69.0 Pneumonitis due to inhalation of food and vomit; J44.0 Chronic obstructive pulmonary disease with (acute) lower respiratory infection
CPT/HCPCS: 71046

== ENCOUNTER → 2020-04-13 14:03 | Outpatient (CLI) | payer OTHER, SELFPAY ==
[2020-04-13 14:35] VITALS: PULSE 89; PULSE 92
[2020-04-13 15:35] LABS: Basophils # 0.1 K/mm3 (0-0.2); Basophils % 0.7 % (0.1-2.0); Eosinophils # 0.4 K/mm3 (0.0-0.4); Eosinophils % 5.3 % (0.1-12.0); Hematocrit 46.8 % (42.0-52.0); Hemoglobin 15.8 g/dL (14.1-18.0); Lymphocytes # 2.3 K/mm3 (0.7-4.5); Lymphocytes % 29.6 % (10-50); Mean Corpuscular HGB Conc 33.8 g/dL (31.8-35.4); Mean Corpuscular Hemoglobin 30.3 pg (27.0-31.2); Mean Corpuscular Volume 89.5 fl (80-94); Mean Platelet Volume 7.6 fl (7.4-10.4); Monocytes # 0.4 K/mm3 (0.1-1.0); Monocytes % 4.8 % (1.7-9.3); Neutrophils # 4.7 K/mm3 (1.8-7.8); Neutrophils % 59.7 % (37.0-80.0); Platelet Count 218 K/mm3 (142-424); Red Blood Count 5.22 M/mm3 (4.60-6.20); Red Cell Distribution Width 14.4 % (11.5-17.5); White Blood Count 7.8 K/mm3 (4.8-10.8)
[2020-04-13 16:13] LABS: Chloride 99 mmol/L (98-107); Potassium 4.5 mmoL/L (3.5-5.1); Sodium 141 mmol/L (136-145)
[2020-04-13 16:16] LABS: Alanine Aminotransferase 26 U/L (12-78); Albumin Level 4.2 g/dl (3.5-5.0); Albumin/Globulin Ratio 1.7 (1.1-1.8); Alkaline Phosphatase 66 U/L (38-126); Anion Gap 9.5 mEq/L (5-15); Aspartate Amino Transferase 27 U/L (17-59); Bilirubin,Total 0.6 mg/dl (0.2-1.3); Blood Urea Nitrogen 12 mg/dl (9-20); Carbon Dioxide 37 mmol/L (22.0-30.0); Cholesterol 215 mg/dl (140-200); Estimated Glomerular Filt Rate 71 ml/min (>60); GFR (African American) 85 ML/MIN (>60); Globulin 2.5 g/dL (1.3-3.2); Total Protein,Serum 6.7 g/dl (6.3-8.2); Triglycerides 140 mg/dl (30-150); VLDL Cholesterol 28 mg/dL (0-40)
[2020-04-13 16:17] LABS: Calcium 9.1 mg/dl (8.4-10.2); Chol/HDL Ratio 5.2 (1-3.5); Glucose 93 mg/dl (74-100); HDL Cholesterol 41 mg/dl (40-60)
[2020-04-13 16:27] LABS: Direct LDL Cholesterol 158.82 mg/dL (100-129)
== END ==
PROVIDERS: PCP Internal Medicine Adolescent Medicine; Visit Provider Internal Medicine Adolescent Medicine
DX: J44.9 Chronic obstructive pulmonary disease, unspecified (principal)
CPT/HCPCS: 36415; 80053; 80061; 85025; 94060; 94640; 94727; 94729

== ENCOUNTER → 2021-08-11 12:49 | Outpatient (CLI) | payer OTHER, SELFPAY ==
--- NOTE | 2021-08-11 12:58 | XR_ITS ---
PROCEDURE: XR CHEST PORTABLE CLINICAL HISTORY: COVID TESTING COMPARISON: CR CXR2V XR chest 2V from 07/02/2018 CR CXR1VP XR chest portable from 07/28/[address] angio chest from 07/28/2018 DX CXR2V XR chest 2V from 01/25/2019 FINDINGS: The cardiomediastinal silhouette and pulmonary vascularity are within normal limits. COPD changes. There is blunting of the left CP angle the with increased density in the left lower lobe. These findings have developed since 01/25/2019. No acute bony abnormalities. IMPRESSION: Interval development of blunting of the left CP angle and increased density in the left lower lobe suggesting infiltrate and atelectatic change with effusion. Post inflammatory changes with pleural thickening and fibrosis is included in the differential diagnosis. Dictated by: Ever Soares MD 08/11/2021 13:23 Ever Soares MD in [place] 08/11/2021 13:23
[2021-08-11 13:13] LABS: Adenovirus,PCR Not Detected (NotDetected); Bordetella Pertussis Not Detected (NotDetected); Chlamydophila Pneumoniae, PCR Not Detected (NotDetected); Coronavirus 229E Not Detected (NotDetected); Coronavirus NL63 Not Detected (NotDetected); Coronavirus OC43 Not Detected (NotDetected); Coronovirus HKU1,PCR Not Detected (NotDetected); Human Metapneumovirus Not Detected (NotDetected); Influenza A, PCR Not Detected (NotDetected); Influenza AH1, 2009 Not Detected (NotDetected); Influenza AH1, PCR Not Detected (NotDetected); Influenza AH3,PCR Not Detected (NotDetected); Influenza B, PCR Not Detected (NotDetected); Mycoplasma Pneumoniae, PCR Not Detected (NotDetected); Parainfluenza 1, PCR Not Detected (NotDetected); Parainfluenza 2, PCR Not Detected (NotDetected); Parainfluenza 3, PCR Not Detected (NotDetected); Parainfluenza 4, PCR Not Detected (NotDetected); Respiratory Syncytial Virus Not Detected (NotDetected); Rhinovirus/Enterovirus Not Detected (NotDetected)
[2021-08-11 14:34] LABS: Coronavirus 19, PCR Detected (NotDetected)
== END ==
PROVIDERS: PCP Internal Medicine Adolescent Medicine; Visit Provider Internal Medicine Adolescent Medicine
DX: Z20.822 Contact with and (suspected) exposure to COVID-19 (principal); U07.1 COVID-19; J44.1 Chronic obstructive pulmonary disease with (acute) exacerbation; R50.9 Fever, unspecified
CPT/HCPCS: 71045; 87581; 87632; 87798; C9803; U0003; U0005

== ENCOUNTER → 2021-10-06 17:24 | Outpatient (CLI) | payer OTHER, SELFPAY ==
[2021-10-06 17:28] LABS: Microscopic, Urine URINE MICROSCOPIC (MICROSCOPIC)
[2021-10-06 17:40] LABS: Basophils # 0.2 K/mm3 (0-0.2); Basophils % 1.7 % (0.1-2.0); Eosinophils # 0.5 K/mm3 (0.0-0.4); Eosinophils % 3.8 % (0.1-12.0); Hematocrit 50.4 % (42.0-52.0); Hemoglobin 16.2 g/dL (14.1-18.0); Lymphocytes # 3.1 K/mm3 (0.7-4.5); Lymphocytes % 26.2 % (10-50); Mean Corpuscular HGB Conc 32.1 g/dL (31.8-35.4); Mean Corpuscular Hemoglobin 29.2 pg (27.0-31.2); Mean Platelet Volume 7.4 fl (7.4-10.4); Monocytes # 0.7 K/mm3 (0.1-1.0); Monocytes % 5.5 % (1.7-9.3); Neutrophils # 7.5 K/mm3 (1.8-7.8); Neutrophils % 62.7 % (37.0-80.0); Platelet Count 471 K/mm3 (142-424); Red Blood Count 5.54 M/mm3 (4.60-6.20); Red Cell Distribution Width 13.9 % (11.5-17.5); White Blood Count 11.9 K/mm3 (4.8-10.8)
[2021-10-06 17:52] LABS: Appearance,Urine CLEAR (Clear); Bilirubin,Urine Negative (Negative); Blood, Urine Negative (Negative); Color,Urine YELLOW (Yellow); Glucose,Urine (UA) Negative (Negative); Ketones,Urine Negative (Negative); Leukocyte Esterase,Urine Negative (Negative); Nitrate,Urine Negative (Negative); Protein,Urine Negative (Negative); Specific Gravity, Urine 1.025 (1.005-1.030); Urobilinogen,Urine 0.2 EU/dl (0.2)
[2021-10-06 18:10] LABS: Bacteria,Urine Trace /lpf; WBC,Urine Occasional #/hpf (0-3)
[2021-10-06 19:06] LABS: Alanine Aminotransferase 34 U/L (12-78); Albumin Level 4.2 g/dl (3.5-5.0); Albumin/Globulin Ratio 1.3 (1.1-1.8); Alkaline Phosphatase 82 U/L (38-126); Amylase 86 U/L (30-110); Anion Gap 8.6 mEq/L (5-15); Aspartate Amino Transferase 25 U/L (17-59); Bilirubin,Total 0.7 mg/dl (0.2-1.3); Blood Urea Nitrogen 17 mg/dl (9-20); Calcium 9.4 mg/dl (8.4-10.2); Carbon Dioxide 34 mmol/L (22.0-30.0); Chloride 96 mmol/L (98-107); Estimated Glomerular Filt Rate 70 ml/min (>60); GFR (African American) 85 ML/MIN (>60); Globulin 3.2 g/dL (1.3-3.2); Glucose 109 mg/dl (74-100); Lipase 120 U/L (23-300); Potassium 4.6 mmoL/L (3.5-5.1); Sodium 134 mmol/L (136-145); Total Protein,Serum 7.4 g/dl (6.3-8.2)
== END ==
PROVIDERS: Visit Provider Internal Medicine Adolescent Medicine
DX: R10.31 Right lower quadrant pain (principal)
CPT/HCPCS: 36415; 80053; 81001; 82150; 83690; 85025

== ENCOUNTER → 2021-10-14 09:18 | Outpatient (CLI) | payer OTHER, SELFPAY ==
--- NOTE | 2021-10-14 09:30 | CT_ITS ---
FINAL REPORT CLINICAL HISTORY: RUQ PAIN COMPARISON: July 28 2018 and May 08, 2018 FINDINGS: Technique: The patient was injected with intravenous contrast. Oral contrast was administered. Axial images through the abdomen and pelvis were performed. Abdomen: There are numerous nodular opacities in both lung bases which have partially improved from the prior chest CT on July 28, 2018. This likely represents mycobacterial/fungal disease. There is mild left pleural thickening. There is a focal opacity in the left lung base, favor scarring. The liver is normal in size and attenuation. There is mild, nonspecific gallbladder wall thickening. The spleen is unremarkable. The adrenals are normal. The pancreas is unremarkable. There are multiple small nonobstructing renal stones which are stable. The aorta is normal in caliber. There is no free fluid or adenopathy. Pelvis: The appendix is not definitely visualized. The urinary bladder is unremarkable. There is no free fluid or adenopathy. IMPRESSION: Numerous, partially improved, bibasilar nodular opacities, likely represents mycobacterial/fungal disease. Multiple small nonobstructing renal stones, stable. Reviewed, Interpreted and Dictated by Fish Shipley III, MD Transcribed by Meseret Power Authenticated by Fish Shipley III, MD on 10/14/2021 11:21:37 AM [facility]
== END ==
PROVIDERS: PCP Internal Medicine Adolescent Medicine; Visit Provider Internal Medicine Adolescent Medicine
DX: R10.31 Right lower quadrant pain (principal)
CPT/HCPCS: 74177; Q9967

== ENCOUNTER 2022-11-08 11:50 | Inpatient (IN) | payer OTHER, SELFPAY ==
--- NOTE | 2022-11-08 12:08 | PC.NURSE ---
arrived to floor by wheelchair from front lobby
[2022-11-08 12:12] VITALS: BP 148/88; PULSE 130; RESP 18; TEMP 37.4; O2SAT 69; BMI 22.9
[2022-11-08 12:30] VITALS: O2SAT 92
--- NOTE | 2022-11-08 12:48 | XR_ITS ---
FINAL REPORT TECHNIQUE: Chest PA & Lateral CLINICAL HISTORY: cough COMPARISON: August 2021 FINDINGS: 2 views of the chest were performed. The heart size is normal. The mediastinum is within normal limits. The lungs are hyperinflated. Coarse interstitial opacity in both lungs is more evident than on the prior exam and may be due to progressing fibrosis. There is localized opacity in left lung base favored represent scarring. There is blunting of the left costophrenic angle favored represent scarring. There is no pneumothorax. The bony thorax appears intact. IMPRESSION: Coarse interstitial opacity more evident than on the prior exam could be due to progressive fibrosis. Reviewed, Interpreted and Dictated by Malick Zeng MD Transcribed by Naif Edwards Authenticated and [facility]
[2022-11-08 13:43] LABS: Basophils # 0.5 K/mm3 (0-0.2); Basophils % 2.3 % (0.1-2.0); Eosinophils # 0.1 K/mm3 (0.0-0.4); Eosinophils % 0.7 % (0.1-12.0); Hematocrit 45.1 % (42.0-52.0); Hemoglobin 14.9 g/dL (14.1-18.0); Lymphocytes # 2.2 K/mm3 (0.7-4.5); Lymphocytes % 11.1 % (10-50); Mean Corpuscular HGB Conc 33.1 g/dL (31.8-35.4); Mean Corpuscular Hemoglobin 28.6 pg (27.0-31.2); Mean Corpuscular Volume 86.3 fl (80-94); Mean Platelet Volume 7.8 fl (7.4-10.4); Monocytes # 0.8 K/mm3 (0.1-1.0); Monocytes % 4.2 % (1.7-9.3); Neutrophils # 15.9 K/mm3 (1.8-7.8); Neutrophils % 81.7 % (37.0-80.0); Platelet Count 476 K/mm3 (142-424); Red Blood Count 5.23 M/mm3 (4.60-6.20); Red Cell Distribution Width 15.3 % (11.5-17.5); White Blood Count 19.4 K/mm3 (4.8-10.8)
[2022-11-08 13:44] LABS: Coronavirus 19, PCR Not Detected (NotDetected); Influenza A, PCR Not Detected (NotDetected); Influenza B, PCR Not Detected (NotDetected)
[2022-11-08 13:48] LABS: Chloride 93 mmol/L (98-107); Sodium 135 mmol/L (136-145)
[2022-11-08 13:49] LABS: Potassium 4.2 mmoL/L (3.5-5.1)
[2022-11-08 13:51] LABS: Alanine Aminotransferase 32 U/L (12-78); Alkaline Phosphatase 168 U/L (38-126); Anion Gap 10.2 mEq/L (5-15); Aspartate Amino Transferase 45 U/L (17-59); Bilirubin,Total 1.4 mg/dl (0.2-1.3); Blood Urea Nitrogen 19 mg/dl (9-20); Carbon Dioxide 36 mmol/L (22.0-30.0); Creatinine Clearance Estimated 102 mL/min (50-200); Estimated Glomerular Filt Rate 88 ml/min (>60); GFR (African American) 106 ML/MIN (>60); Lactic Acid 1.2 mmol/L (0.7-2.1)
[2022-11-08 13:52] LABS: Albumin Level 3.6 g/dl (3.5-5.0); Albumin/Globulin Ratio 0.9 (1.1-1.8); Calcium 8.4 mg/dl (8.4-10.2); Globulin 4.2 g/dL (1.3-3.2); Glucose 143 mg/dl (74-100); MANUAL DIFFERENTIAL MANUAL DIFFERENTIAL (MANUAL DIFF); Total Protein,Serum 7.8 g/dl (6.3-8.2)
[2022-11-08 14:07] LABS: Lymphocytes % 11 % (10-50); Monocytes % 7 % (2-9); Neutrophils % 80 % (42-76); RBC Morphology Normal; Total Cells Counted 100
[2022-11-08 14:08] LABS: Platelet Estimate Slight Increase
--- NOTE | 2022-11-08 14:40 | ECG_ITS ---
APPROVED REPORT Exam: Resting ECG HR:125 bpm ECG Measurements Heart Rate 125 AXES ND 124 P 80 QRSd 93 QRS 77 QT 313 T 53 QTc 387 Conclusion SINUS TACHYCARDIA ABNORMAL RHYTHM ECG UNCONFIRMED REPORT Electronically signed by : Min Shah MD 11/08/2022 20:17:10
--- NOTE | 2022-11-08 15:21 | HMH.PHAINT1 ---
Pharmacy Intervention Comments: Medication reconciliation completed on patient using external fill history and list from PCP office?
[2022-11-08 15:41] VITALS: BP 124/85; PULSE 120; RESP 22; TEMP 37; O2SAT 90
[2022-11-08 20:00] VITALS: BP 122/89; PULSE 77; RESP 20; TEMP 37.1; O2SAT 90; O2SAT 92
--- NOTE | 2022-11-08 20:25 | CT_ITS ---
PROCEDURE INFORMATION: Exam: CT Chest Without Contrast; Diagnostic Exam date and time: 11/08/2022 8:47 PM Age: 52 years old Clinical indication: Screening exam; Other screening; Additional info: Eval for fibrosis or infiltrate TECHNIQUE: Imaging protocol: Diagnostic computed tomography of the chest without contrast. Radiation optimization: All CT scans at this facility use at least one of these dose optimization techniques: automated exposure control; mA and/or kV adjustment per patient size (includes targeted exams where dose is matched to clinical indication); or iterative reconstruction. Other protocol: This patient has received 0 known CTs and 0 known cardiac nuclear medicine studies in the 12 months prior to the current study. COMPARISON: CR XR CHEST 2V 11/08/2022 2:38 PM FINDINGS: Lungs: Severe emphysema. Superimposed innumerable nodular opacities which could be post infectious in nature . These have increased in number when compared to the previous examination in 2018. There is pleural and parenchymal scarring in the left lower lobe and lingula and right middle lobe. Pleural spaces: No effusions or pneumothorax. Heart: Unremarkable. No cardiomegaly. No pericardial effusion. Lymph nodes: Small mediastinal lymph nodes. Vasculature: Unremarkable. No aortic aneurysm. Kidneys and ureters: The upper abdomen reveals bilateral nephrolithiasis. Bones/joints: Unremarkable. No acute fracture. Soft tissues: Unremarkable. IMPRESSION: There are innumerable nodular opacities which have increased since previous exam in 2018. These findings could be infectious in nature. Underlying chronic interstitial lung disease and severe emphysema. COMMENTS: In the absence of a history or active diagnosis of lung cancer, it is recommended that this patient with emphysema be evaluated for enrollment in a low dose CT lung cancer screening program.
--- NOTE | 2022-11-08 20:27 | EXP.HP ---
History of Present Illness *Admission Date: 11/08/22 *Reason for visit:: Cough, congestion, fatigue *History of present illness: 52-year-old male with end-stage COPD who is oxygen requiring a neb required at home, has had frequent exacerbations. He came to my office today with weakness, fatigue, could not walk because of dyspnea and fatigue. Was found to be wheelchair-bound with O2 saturations in the 70s on room air. He had crackles and rhonchi in his left lung base and he was admitted to the hospital. [facility] Disclaimer: The information contained in this section may have been updated after the patient was seen, as this information can be updated by other users. Medical History Kidney stones Family History (Updated 11/08/22 @ 13:13 by Lily Galan RN) No significant family history Social History (Updated 11/08/22 @ 13:14 by Lily Galan RN) Smoking Status: Former smoker second hand exposure: Yes alcohol intake: never substance use type: marijuana current occupational status: disabled Travel in the last 8 weeks: None household members: spouse and children housing: house current occupational exposures/hazards: No caffeine: Yes Review of Systems Review of Systems Review of systems:: pertinent systems reviewed and negative unless documented below Meds Home Medications and Allergies Home Medications Medication Instructions Recorded Confirmed Type levalbuterol HCl 1.25 mg/3 mL 3 ml inhalation Q6 Breathing 12/08/17 11/08/22 History solution for nebulization problems quetiapine 200 mg tablet 200 mg PO HS mood 12/08/17 11/08/22 History albuterol sulfate 90 mcg/actuation 90 mcg inhalation QID Breathing 11/08/22 11/08/22 History aerosol inhaler (Ventolin HFA) problems bupropion HCl 300 mg 24 hr tablet, 300 mg PO DAILY mood 11/08/22 11/08/22 History extended release famotidine 20 mg tablet 20 mg PO BID GERD 11/08/22 11/08/22 History fluoxetine 40 mg capsule 40 mg PO DAILY mood 11/08/22 11/08/22 History fluticasone fur. 200 mcg-umeclid 1 inh inhalation DAILY breathing 11/08/22 11/08/22 History 62.5 mcg-vilant 25 mcg problems inhalat.powder (Trelegy Ellipta) fluticasone propionate 50 50 mcg intranasal DAILY breathing 11/08/22 11/08/22 History mcg/actuation nasal problems spray,suspension melatonin 5 mg capsule 5 mg PO HS Insomnia 11/08/22 11/08/22 History montelukast 10 mg tablet 10 mg PO DAILY Breathing problems 11/08/22 11/08/22 History (Singulair) polyethylene glycol 3350 17 gram 17 g PO DAILY constipation 11/08/22 11/08/22 History oral powder packet (Miralax) theophylline 200 mg 200 mg PO DAILY Breathing problems 11/08/22 11/08/22 History tablet,extended release,12 hr tiotropium bromide 18 mcg capsule 18 mcg inhalation DAILY COPD 11/08/22 11/08/22 History with inhalation device tramadol 50 mg tablet 100 - 150 mg PO TIDP PRN Pain 11/08/22 11/08/22 History triamcinolone acetonide 0.1 % 1 applic topical BID itching 11/08/22 11/08/22 History topical cream New Prescriptions to Start Prescriptions: Allergies Allergy/AdvReac Type Severity Reaction Status Date / Time No Known Drug Allergies Allergy Unknown Verified 10/21/21 15:02 [NKDA] Exam Data for Last 24 hours Vital signs and Labs for Last 24 Hours: Temp Pulse Resp BP Pulse Ox FiO2 98.8 F 77 20 122/89 90 L 32 11/08/22 20:00 11/08/22 20:00 11/08/22 20:00 11/08/22 20:00 11/08/22 20:00 11/08/22 18:38 Laboratory Results - last 24 hr 11/08/22 12:45: SARS-CoV-2 (PCR) Not detected, Influenza A Untype (PCR) Not detected, Influenza Type B (PCR) Not detected 11/08/22 13:15: WBC 19.4 H, RBC 5.23, Hgb 14.9, Hct 45.1, MCV 86.3, MCH 28.6, MCHC 33.1, RDW 15.3, Plt Count 476 H, MPV 7.8, Neut % (Auto) 81.7 H, Lymph % (Auto) 11.1, [place] % (Auto) 4.2, Eos % (Auto) 0.7, Baso % (Auto) 2.3 H, Neut # (Auto) 15.9 H, Lymph # (
--- NOTE | 2022-11-08 20:49 | PC.NURSE ---
pt to ct at this time
--- NOTE | 2022-11-08 20:58 | PC.NURSE ---
pt back from ct
[2022-11-08 21:55] VITALS: PULSE 120; PULSE 124; O2SAT 91
[2022-11-08 23:52] VITALS: BP 111/69; PULSE 117; RESP 24; TEMP 37.3; O2SAT 92
[2022-11-09] VITALS (12 sets, daily range): BP systolic 100–123; BP diastolic 69–79; PULSE 80–114; RESP 19–28; TEMP 36.7–37.1; O2SAT 90–99; BMI 23.9
--- NOTE | 2022-11-09 06:38 | PC.NURSE ---
Pt had desat to 70%. Upon entering room pt had nc off sitting on side of bed and states he had walked to BR. Pt titrated up to 6 L nc, current sat 93%. Wheezing heard t/o lung cee. Urinal given to pt and pt encouraged to call out if need to get up. Pt verbalizes understanding. Call light within reach.
--- NOTE | 2022-11-09 08:34 | EXP.ACUTE.PN ---
Subjective *Date: 11/09/22 *Time: 08:34 Interval history: Overall patient feels better. Is breathing better, was able to eat a little bit this morning. Has coughed up some sputum which is in the lab. Medical Exam Vital signs and Labs for Last 24 Hours: Vital Signs Temp Pulse Pulse Resp BP Pulse Ox FiO2 11/09/22 07:22 98.5 F 109 H 22 108/79 L 93 L 11/09/22 06:27 91 L 11/09/22 06:18 107 H 11/09/22 06:18 102 H 11/09/22 04:00 98.5 F 107 H 22 123/69 94 L 11/08/22 20:00 92 L 11/08/22 23:52 99.1 F 117 H 24 111/69 92 L 11/08/22 21:55 124 H 11/08/22 21:55 120 H 11/08/22 21:55 91 L 11/08/22 20:00 98.8 F 77 20 122/89 90 L 11/08/22 18:38 32 11/08/22 15:41 98.6 F 120 H 22 124/85 90 L 11/08/22 12:30 92 L 11/08/22 12:12 99.3 F 130 H 18 148/88 H 69 L Intake and Output 11/08/22 11/09/22 11/09/22 19:59 03:59 11:59 Intake Total 120 / 360 240 / 360 Output Total 0 / 0 Balance 120 / 360 240 / 360 Intake: Intake, Oral Amount 120 / 360 240 / 360 Output: Output, Urine Amount 0 / 0 Other: Number of Voids 1 Number of Unmeasured Voids 1 1 Weight 169 lb 4 oz 176 lb 9.6 oz Patient Weight 11/09/22 11:59 Weight 176 lb 9.6 oz Laboratory Results - last 24 hr 11/08/22 12:45: SARS-CoV-2 (PCR) Not detected, Influenza A Untype (PCR) Not detected, Influenza Type B (PCR) Not detected 11/08/22 13:15: WBC 19.4 H, RBC 5.23, Hgb 14.9, Hct 45.1, MCV 86.3, MCH 28.6, MCHC 33.1, RDW 15.3, Plt Count 476 H, MPV 7.8, Neut % (Auto) 81.7 H, Lymph % (Auto) 11.1, [place] % (Auto) 4.2, Eos % (Auto) 0.7, Baso % (Auto) 2.3 H, Neut # (Auto) 15.9 H, Lymph # (Auto) 2.2, [place] # (Auto) 0.8, Eos # (Auto) 0.1, Baso # (Auto) 0.5 H, Total Counted 100, Neutrophils % (Manual) 80 H, Band Neutrophils % 1.0, Lymphocytes % (Manual) 11, Monocytes % (Manual) 7, Metamyelocytes % 1.0, Platelet Estimate Slight increase, RBC Morphology Normal 11/08/22 13:15: Sodium 135 L, Potassium 4.2, Chloride 93 L, Carbon Dioxide 36 H, Anion Gap 10.2, BUN 19, Creatinine 0.90, Estimated Creat Clear 102, Estimated GFR 88, Est GFR ( Amer) 106, Glucose 143 H, Calcium 8.4, Total Bilirubin 1.4 H, AST 45, ALT 32, Alkaline Phosphatase 168 H, Total Protein 7.8, Albumin 3.6, Globulin 4.2 H, Albumin/Globulin Ratio 0.9 L 11/08/22 13:15: Lactate 1.2 I & O for Labs for Last 24 Hours: Intake & Output 11/06/22 11/07/22 11/08/22 11/09/22 11:59 11:59 11:59 11:59 Intake Total 360 / 360 Output Total 0 / 0 Balance 360 / 360 Weight 176 lb 9.6 oz Comment:: Alert. Sitting up in bed. Feels more comfortable. Good air movement, still has rhonchi in the bases especially in the left side but much less crackly sounds. Less tachypnea and no use of accessory muscles. No edema noted. Assessment and Plan *Assessment and plan (1) COPD with exacerbation: Status: Acute Category: Medical Code(s): J44.1 - Chronic obstructive pulmonary disease with (acute) exacerbation (2) Fever: Status: Acute Category: Medical Code(s): R50.9 - Fever, unspecified (3) Leukocytosis: Status: Acute Category: Medical Code(s): D72.829 - Elevated white blood cell count, unspecified (4) Depression with anxiety: Status: Chronic Category: Medical Code(s): F41.8 - Other specified anxiety disorders Plan Significant exacerbation of COPD versus lobar pneumonia. Admit to hospital, antibiotics have been started. Increased pulmonary toilet. Initial chest x-ray reading shows possible fibrosis, will check CT scan. Continue oxygen therapy. Plan addendum 11/09/22-CT scan shows multiple increased pulmonary nodules. Patient had been seen by Dr. Kendall and infectious work-up has been done several years ago. Will ask pulmonary to reevaluate his worsening nodularity and overall lung status. Overall improving f
--- NOTE | 2022-11-09 09:22 | EXP.PULM.CON ---
History of Present Illness History of present illness: Mr. Mchugh is a 52-year-old male prior smoker greater than [id number] smoking as a diagnosis of COPD and presented with symptoms presented to hospital with 7 history of worsening respiratory's distress along with cough and productive phlegm up and presented to the ER need increasing oxygen comments with abnormal CT chest and pulmonary was called for further evaluation [facility] Disclaimer: The information contained in this section may have been updated after the patient was seen, as this information can be updated by other users. Medical History (Updated 11/09/22 @ 10:43 by Lacho Manzano MD) Abnormal screening CT of chest Acute and chronic respiratory failure Kidney stones Multiple lung nodules on CT Family History (Updated 11/08/22 @ 13:13 by Lily Galan, RN) Other No significant family history Social History (Updated 11/08/22 @ 13:14 by Lily Galan, RN) Smoking Status: Former smoker second hand exposure: Yes alcohol intake: never substance use type: marijuana current occupational status: disabled Travel in the last 8 weeks: None household members: spouse and children housing: house current occupational exposures/hazards: No caffeine: Yes Review of Systems Constitutional Constitutional: Reports anorexia, Reports body ache(s) and Reports fatigue Eyes Eyes: Denies eye discharge, Denies dry eyes, Denies irritation and Denies itchy eyes ENT Ears, Nose, Mouth, and Throat: Denies epistaxis, Denies facial pain, Denies lip swelling and Denies throat swelling *Cardiovascular Cardiovascular: Reports dyspnea and Reports dyspnea on exertion *Respiratory Respiratory: Reports chest congestion, Reports cough, Reports dyspnea, Reports dyspnea on exertion, Reports excessive phlegm production, Denies hemoptysis, Reports pain with cough and Reports wheezing *Gastrointestinal Gastrointestinal: Denies abdominal pain, Denies belching and Denies cramping *Musculoskeletal Musculoskeletal: Reports back pain, Reports myalgias and Reports other (No small joint swelling or Pain) Psychiatric Psychiatric: Denies homicidal ideation and Denies suicidal ideation Endocrine Endocrine: Reports fatigue and Denies heat intolerance Hematologic/Lymphatic Hematologic/Lymphatic: Denies easy bleeding and Denies lymphadenopathy Allergic/Immunologic Allergic/Immunologic: Denies itchy eyes, Denies lip swelling, Denies throat swelling and Reports wheezing Pulmonology Exam Inpatient Vital signs and Labs for Last 24 Hours: Temp Pulse Resp BP Pulse Ox FiO2 98.5 F 109 H 22 108/79 L 93 L 32 11/09/22 07:22 11/09/22 07:22 11/09/22 07:22 11/09/22 07:22 11/09/22 07:22 11/08/22 18:38 Laboratory Results - last 24 hr 11/08/22 12:45: SARS-CoV-2 (PCR) Not detected, Influenza A Untype (PCR) Not detected, Influenza Type B (PCR) Not detected 11/08/22 13:15: WBC 19.4 H, RBC 5.23, Hgb 14.9, Hct 45.1, MCV 86.3, MCH 28.6, MCHC 33.1, RDW 15.3, Plt Count 476 H, MPV 7.8, Neut % (Auto) 81.7 H, Lymph % (Auto) 11.1, [place] % (Auto) 4.2, Eos % (Auto) 0.7, Baso % (Auto) 2.3 H, Neut # (Auto) 15.9 H, Lymph # (Auto) 2.2, [place] # (Auto) 0.8, Eos # (Auto) 0.1, Baso # (Auto) 0.5 H, Total Counted 100, Neutrophils % (Manual) 80 H, Band Neutrophils % 1.0, Lymphocytes % (Manual) 11, Monocytes % (Manual) 7, Metamyelocytes % 1.0, Platelet Estimate Slight increase, RBC Morphology Normal 11/08/22 13:15: Sodium 135 L, Potassium 4.2, Chloride 93 L, Carbon Dioxide 36 H, Anion Gap 10.2, BUN 19, Creatinine 0.90, Estimated Creat Clear 102, Estimated GFR 88, Est GFR ( Amer) 106, Glucose 143 H, Calcium 8.4, Total Bilirubin 1.4 H, AST 45, ALT 32, Alkaline Phosphatase 168 H, Total Protein 7.8, Albumin 3.6, Globulin 4.2 H, Albumin/Globulin Ratio 0.9 L 11/08/22 13:15: Lactate 1.2 I & O for Labs for Last 24 Hours: Intake & Output 11/06/22 11/07/22 11/08/22 11/09/22 23:59 23:59 23:59 23:59 Intake Total
--- NOTE | 2022-11-09 14:41 | DIET.NUTRFU ---
Saw patient after lunch today, poor intake. He reports he had a late breakfast-biscuits and gravy and was not hungry yet. RD offered him something else for lunch, he is on regular diet. He declined. Also offered milkshake or supplements, also declined, he feels like his appetite is improving. Steroid tx in place which may case appetite increase which maybe beneficial. Denies any GI distress. Will continue to monitor meal intake
--- NOTE | 2022-11-09 18:37 | PC.NURSE ---
pt is on 4L NC, does desat with exertion, no complaints of chest pain
[2022-11-10] VITALS (12 sets, daily range): BP systolic 119–127; BP diastolic 68–75; PULSE 78–105; RESP 17–26; TEMP 36.6–37; O2SAT 4–94; BMI 23.7
--- NOTE | 2022-11-10 04:44 | PC.NURSE ---
Pt. will desat down to the 70 s when walking to the restroom. He states he will call out when going to the restroom. No other changes noted.
[2022-11-10 07:08] LABS: Basophils # 0.3 K/mm3 (0-0.2); Eosinophils % 0.2 % (0.1-12.0); Hematocrit 42.4 % (42.0-52.0); Hemoglobin 13.8 g/dL (14.1-18.0); Lymphocytes # 2.4 K/mm3 (0.7-4.5); Lymphocytes % 9.3 % (10-50); Mean Corpuscular HGB Conc 32.6 g/dL (31.8-35.4); Mean Corpuscular Hemoglobin 28.6 pg (27.0-31.2); Mean Corpuscular Volume 87.7 fl (80-94); Mean Platelet Volume 7.7 fl (7.4-10.4); Monocytes # 0.9 K/mm3 (0.1-1.0); Monocytes % 3.4 % (1.7-9.3); Neutrophils # 21.7 K/mm3 (1.8-7.8); Neutrophils % 86.1 % (37.0-80.0); Platelet Count 456 K/mm3 (142-424); Red Blood Count 4.84 M/mm3 (4.60-6.20); Red Cell Distribution Width 15.3 % (11.5-17.5); White Blood Count 25.2 K/mm3 (4.8-10.8)
[2022-11-10 07:11] LABS: MANUAL DIFFERENTIAL MANUAL DIFFERENTIAL (MANUAL DIFF)
[2022-11-10 07:16] LABS: Chloride 94 mmol/L (98-107); Potassium 3.9 mmoL/L (3.5-5.1); Sodium 138 mmol/L (136-145)
--- NOTE | 2022-11-10 07:16 | EXP.ACUTE.PN ---
Subjective *Date: 11/10/22 *Time: 07:16 Interval history: Overall patient feels a little better, continues to have some dyspnea when he gets up and walks around his room but is better in regards to this compared to baseline. Back on 4 L nasal cannula. Has told me this morning that he had run out of his nebulizer medication at home. Medical Exam Vital signs and Labs for Last 24 Hours: Vital Signs Temp Pulse Pulse Resp BP Pulse Ox 11/10/22 05:45 84 11/10/22 05:45 84 11/10/22 05:45 92 L 11/10/22 04:00 98.0 F 98 H 26 H 119/70 92 L 11/09/22 23:46 98.1 F 80 28 H 111/73 95 11/09/22 20:00 95 11/09/22 20:00 98.8 F 99 H 24 100/69 L 95 11/09/22 18:59 110 H 11/09/22 18:59 114 H 11/09/22 18:59 91 L 11/09/22 14:57 98.6 F 113 H 19 122/74 90 L 11/09/22 13:40 99 11/09/22 13:40 83 11/09/22 13:40 80 11/09/22 11:27 85 11/09/22 11:27 89 11/09/22 11:09 98.4 F 100 H 20 116/73 96 11/09/22 08:00 109 H 93 L 11/09/22 07:22 98.5 F 109 H 22 108/79 L 93 L Intake and Output 11/09/22 11/10/22 11/10/22 19:59 03:59 11:59 Intake Total 870 / 870 Output Total 0 / 0 0 / 0 0 / 0 Balance 870 / 870 0 / 870 0 / 870 Intake: Intake, Oral Amount 720 / 720 Intake, Total IV Amount 150 / 150 Levofloxacin/D5w 750 mg/150 ml 150 / 150 750 mg In 150 ml @ 100 mls/hr IV Q24H [facility] Rx#:[id number] Output: Output, Urine Amount 0 / 0 0 / 0 0 / 0 Other: Number of Unmeasured Voids 2 1 1 Weight 175 lb Patient Weight 11/10/22 11:59 Weight 175 lb Laboratory Results - last 24 hr 11/10/22 06:44: WBC 25.2 H* D, RBC 4.84, Hgb 13.8 L, Hct 42.4, MCV 87.7, MCH 28.6, MCHC 32.6, RDW 15.3, Plt Count 456 H, MPV 7.7, Neut % (Auto) 86.1 H, Lymph % (Auto) 9.3 L, [place] % (Auto) 3.4, Eos % (Auto) 0.2, Baso % (Auto) 1.0, Neut # (Auto) 21.7 H, Lymph # (Auto) 2.4, [place] # (Auto) 0.9, Eos # (Auto) 0.0, Baso # (Auto) 0.3 H I & O for Labs for Last 24 Hours: Intake & Output 11/07/22 11/08/22 11/09/22 11/10/22 11:59 11:59 11:59 11:59 Intake Total 360 / 360 870 / 870 Output Total 0 / 0 0 / 0 Balance 360 / 360 870 / 870 Weight 176 lb 9.6 oz 175 lb Microbiology Reports for the Last 24 Hours: Microbiology 11/09/22 11:00 Sputum - Expectorated Sputum JEWELL Preparation - Final 11/08/22 11:00 Sputum - Expectorated Sputum Gram Stain - Final Comment:: Patient is alert, pleasant. Still with rhonchi in both lung cee with some crackles but vastly improved air movement over admission. No edema. No clubbing. Abdomen soft. Heart rate regular Assessment and Plan *Assessment and plan (1) COPD with exacerbation: Status: Acute Category: Medical Code(s): J44.1 - Chronic obstructive pulmonary disease with (acute) exacerbation (2) Fever: Status: Acute Category: Medical Code(s): R50.9 - Fever, unspecified (3) Leukocytosis: Status: Acute Category: Medical Code(s): D72.829 - Elevated white blood cell count, unspecified (4) Depression with anxiety: Status: Chronic Category: Medical Code(s): F41.8 - Other specified anxiety disorders Plan Significant exacerbation of COPD versus lobar pneumonia. Admit to hospital, antibiotics have been started. Increased pulmonary toilet. Initial chest x-ray reading shows possible fibrosis, will check CT scan. Continue oxygen therapy. Plan addendum 11/09/22-CT scan shows multiple increased pulmonary nodules. Patient had been seen by Dr. Kendall and infectious work-up has been done several years ago. Will ask pulmonary to reevaluate his worsening nodularity and overall lung status. Overall improving from infectious disease and work of breathing standpoint. Await culture results. Continue current therapy. Check labs tomorrow. Plan update 11/10/2022-improving status. Patient wishe
[2022-11-10 07:18] LABS: Blood Urea Nitrogen 16 mg/dl (9-20); Creatinine Clearance Estimated 95 mL/min (50-200); Estimated Glomerular Filt Rate 78 ml/min (>60); GFR (African American) 94 ML/MIN (>60)
[2022-11-10 07:19] LABS: Calcium 8.5 mg/dl (8.4-10.2); Glucose 141 mg/dl (74-100)
[2022-11-10 07:28] LABS: Lymphocytes % 31 % (10-50); Monocytes % 7 % (2-9); Neutrophils % 62 % (42-76); Platelet Estimate Normal; RBC Morphology Normal; Total Cells Counted 100
[2022-11-10 07:29] LABS: Anion Gap 8.9 mEq/L (5-15); Carbon Dioxide 39 mmol/L (22.0-30.0)
--- NOTE | 2022-11-10 09:32 | EXP.PULM.PN ---
Subjective *Date: 11/10/22 *Time: 10:37 Interval history: No acute respiratory vents overnight. Patient admits improving respiratory symptoms. Pulmonology Exam Inpatient Vital signs and Labs for Last 24 Hours: Temp Pulse Resp BP Pulse Ox FiO2 98.6 F 100 H 18 127/72 93 L 32 11/10/22 07:15 11/10/22 07:15 11/10/22 07:15 11/10/22 07:15 11/10/22 08:48 11/08/22 18:38 Laboratory Results - last 24 hr 11/10/22 06:44: WBC 25.2 H* D, RBC 4.84, Hgb 13.8 L, Hct 42.4, MCV 87.7, MCH 28.6, MCHC 32.6, RDW 15.3, Plt Count 456 H, MPV 7.7, Neut % (Auto) 86.1 H, Lymph % (Auto) 9.3 L, [place] % (Auto) 3.4, Eos % (Auto) 0.2, Baso % (Auto) 1.0, Neut # (Auto) 21.7 H, Lymph # (Auto) 2.4, [place] # (Auto) 0.9, Eos # (Auto) 0.0, Baso # (Auto) 0.3 H, Total Counted 100, Neutrophils % (Manual) 62, Lymphocytes % (Manual) 31, Monocytes % (Manual) 7, Platelet Estimate Normal, RBC Morphology Normal 11/10/22 06:44: Sodium 138, Potassium 3.9, Chloride 94 L, Carbon Dioxide 39 H, Anion Gap 8.9, BUN 16, Creatinine 1.00, Estimated Creat Clear 95, Estimated GFR 78, Est GFR ( Amer) 94, Glucose 141 H, Calcium 8.5 I & O for Labs for Last 24 Hours: Intake & Output 11/07/22 11/08/22 11/09/22 11/10/22 23:59 23:59 23:59 23:59 Intake Total 120 / 120 1110 / 1110 360 / 360 Output Total 0 / 0 0 / 0 Balance 120 / 120 1110 / 1110 360 / 360 Weight 169 lb 4 oz 176 lb 9.6 oz 175 lb Microbiology Reports for the Last 24 Hours: Microbiology 11/09/22 11:00 Sputum - Expectorated Sputum JEWELL Preparation - Final 11/08/22 11:00 Sputum - Expectorated Sputum Gram Stain - Final Constitutional: Present moderate distress Head: Present normocephalic and atraumatic ENT: Present normal exam, normal oropharynx and mucous membranes moist Neck: Present normal inspection and full ROM Respiratory: Present respiratory distress, wheezes, diminished air movement and able to speak in complete sentences; Absent accessory muscle use Cardiac: Present S1/S2, Tachycardia and radial pulses present GI: Present soft and distention; Absent tenderness or guarding Skin: Present intact; Absent cyanosis or jaundice Neuro: Present alert, awake and oriented x 3 Extremities: Present normal inspection; Absent clubbing or cyanosis Psychiatric: Present normal affect and cooperative Assessment and Plan *Assessment and plan (1) COPD with exacerbation: Status: Acute Category: Medical Code(s): J44.1 - Chronic obstructive pulmonary disease with (acute) exacerbation (2) Abnormal screening CT of chest: Status: Acute Category: Medical Code(s): R93.89 - Abnormal findings on diagnostic imaging of other specified body structures (3) Multiple lung nodules on CT: Status: Acute Category: Medical Code(s): R91.8 - Other nonspecific abnormal finding of lung field (4) Acute and chronic respiratory failure: Status: Acute Category: Medical Code(s): J96.20 - Acute and chronic respiratory failure, unspecified whether with hypoxia or hypercapnia Plan #COPD exacerbation: #CAP: Greater than [id number] smoker, last smoked 2014. On chronic long-term oxygen therapy at 2 L. Most recenHospitalization was 12 months ago as per the patient has not received any antibiotics or steroids in the meantime 52-year-old male obstructive lung disease,, V1 VC ratio 38, V1 at 38% predicted, 1.62 L with significant reversibility from 2018 with repeat PFTs from 2020 showed only slight decline FEV1 at 32% predicted, 1.35 L, continue to show very significant reversibility at 39% in FEV1. CT chest revealed emphysematous changes bilateral micronodular opacities diffusely prominent in the lower lobes along with macronodules also seen in his old CAT scan from 2018 worsened now . Significant peripheral eosinophilia 9 from 100-500. Serum IgE within normal limits at 15 in 2018. Autoimmune work-up including ROSANNE, SSA, SSB, SCL 70, dsDNA anticentromere and anti-Flores an
--- NOTE | 2022-11-10 09:33 | XR_ITS ---
FINAL REPORT TECHNIQUE: Single view chest CLINICAL HISTORY: Pneumonia COMPARISON: 11/09/2022 FINDINGS: A single view of the chest was obtained. The heart and mediastinum are within normal limits. There are extensive, chronic interstitial opacities bilaterally with pleural and parenchymal scarring at the left lung base. Lungs are otherwise clear. There is no pneumothorax. Osseous structures are unremarkable. IMPRESSION: No acute cardiopulmonary process. Reviewed, Interpreted and Dictated by Malick Zeng MD Transcribed by Marie Carrasquillo Authenticated and [facility]
--- NOTE | 2022-11-10 18:52 | PC.NURSE ---
O2 decreased to 2.5L via nasal cannula. O2 sats 92% at rest. Patient encouraged to wear oxygen at all times. Up to BR independently. Possible discharge home tomorrow
[2022-11-11] VITALS (9 sets, daily range): BP systolic 102–144; BP diastolic 63–82; PULSE 77–105; RESP 14–22; TEMP 36.5–36.8; O2SAT 88–95; BMI 23.3
--- NOTE | 2022-11-11 08:24 | EXP.ACUTE.PN ---
Subjective *Date: 11/11/22 *Time: 08:24 Interval history: Patient did well overnight. Continues to have oxygen requirement slightly above his baseline at home. Feels more comfortable. Has less sputum production. Has been up and around and going to the restroom by himself. Medical Exam Vital signs and Labs for Last 24 Hours: Vital Signs Temp Pulse Pulse Resp BP Pulse Ox 11/11/22 05:55 88 11/11/22 05:55 90 11/11/22 05:55 88 L 11/11/22 04:00 98 F 85 20 129/73 92 L 11/11/22 00:00 97.8 F 88 14 102/63 L 93 L 11/10/22 22:17 93 H 11/10/22 22:17 104 H 11/10/22 20:00 94 L 11/10/22 20:00 97.9 F 83 17 121/68 93 L 11/10/22 18:47 95 H 11/10/22 18:47 103 H 11/10/22 18:47 93 L 11/10/22 14:49 98.3 F 98 H 17 119/75 94 L 11/10/22 13:57 78 11/10/22 13:57 80 11/10/22 13:57 90 L 11/10/22 10:55 98.5 F 105 H 18 125/70 90 L 11/10/22 09:55 97 H 11/10/22 09:55 97 H 11/10/22 09:55 90 L 11/10/22 08:48 93 L Intake and Output 11/10/22 11/11/22 11/11/22 19:59 03:59 11:59 Intake Total 990 / 990 Output Total 0 / 0 0 / 0 Balance 990 / 990 0 / 990 Intake: Intake, Oral Amount 840 / 840 Intake, Total IV Amount 150 / 150 Levofloxacin/D5w 750 mg/150 ml 150 / 150 750 mg In 150 ml @ 100 mls/hr IV Q24H [facility] Rx#:[id number] Output: Output, Urine Amount 0 / 0 0 / 0 Other: Number of Unmeasured Voids 1 1 Number of Bowel Movements 1 Weight 172 lb 1.6 oz Patient Weight 11/11/22 11:59 Weight 172 lb 1.6 oz I & O for Labs for Last 24 Hours: Intake & Output 11/08/22 11/09/22 11/10/22 11/11/22 11:59 11:59 11:59 11:59 Intake Total 360 / 360 1230 / 1230 990 / 990 Output Total 0 / 0 0 / 0 0 / 0 Balance 360 / 360 1230 / 1230 990 / 990 Weight 176 lb 9.6 oz 175 lb 0.4 oz 172 lb 1.6 oz Microbiology Reports for the Last 24 Hours: Microbiology 11/08/22 11:00 Sputum - Expectorated Sputum Gram Stain - Final 11/08/22 11:00 Sputum - Expectorated Sputum Sputum Culture - Final Normal Respiratory [place] 11/08/22 13:30 Blood Blood Culture - Preliminary NO GROWTH AFTER 48 HOURS 11/08/22 13:15 Blood Blood Culture - Preliminary NO GROWTH AFTER 48 HOURS Comment:: Alert. Pleasant. Oriented. ENT exam clear. Remains afflicted with rhonchi and crackles in his lung cee but has fairly good air movement, improved over admission. Heart rate regular. Abdomen soft. No edema or clubbing in his extremities. Assessment and Plan *Assessment and plan (1) COPD with exacerbation: Status: Acute Category: Medical Code(s): J44.1 - Chronic obstructive pulmonary disease with (acute) exacerbation (2) Fever: Status: Acute Category: Medical Code(s): R50.9 - Fever, unspecified (3) Leukocytosis: Status: Acute Category: Medical Code(s): D72.829 - Elevated white blood cell count, unspecified (4) Depression with anxiety: Status: Chronic Category: Medical Code(s): F41.8 - Other specified anxiety disorders Plan Significant exacerbation of COPD versus lobar pneumonia. Admit to hospital, antibiotics have been started. Increased pulmonary toilet. Initial chest x-ray reading shows possible fibrosis, will check CT scan. Continue oxygen therapy. Plan addendum 11/09/22-CT scan shows multiple increased pulmonary nodules. Patient had been seen by Dr. Kendall and infectious work-up has been done several years ago. Will ask pulmonary to reevaluate his worsening nodularity and overall lung status. Overall improving from infectious disease and work of breathing standpoint. Await culture results. Continue current therapy. Check labs tomorrow. Plan update 11/10/2022-improving status. Patient wishes to
--- NOTE | 2022-11-11 09:07 | EXP.PULM.PN ---
Subjective *Date: 11/11/22 *Time: 11:26 Interval history: No acute respiratory vents overnight. Admits continued improvement in his respiratory symptoms. Pulmonology Exam Inpatient Vital signs and Labs for Last 24 Hours: Temp Pulse Resp BP Pulse Ox FiO2 98 F 88 20 129/73 88 L 32 11/11/22 04:00 11/11/22 05:55 11/11/22 04:00 11/11/22 04:00 11/11/22 05:55 11/08/22 18:38 I & O for Labs for Last 24 Hours: Intake & Output 11/08/22 11/09/22 11/10/22 11/11/22 23:59 23:59 23:59 23:59 Intake Total 120 / 120 1110 / 1110 1350 / 1350 Output Total 0 / 0 0 / 0 Balance 120 / 120 1110 / 1110 1350 / 1350 Weight 169 lb 4 oz 176 lb 9.6 oz 175 lb 0.4 oz 172 lb 1.6 oz Microbiology Reports for the Last 24 Hours: Microbiology 11/08/22 11:00 Sputum - Expectorated Sputum Gram Stain - Final 11/08/22 11:00 Sputum - Expectorated Sputum Sputum Culture - Final Normal Respiratory [place] 11/08/22 13:30 Blood Blood Culture - Preliminary NO GROWTH AFTER 48 HOURS 11/08/22 13:15 Blood Blood Culture - Preliminary NO GROWTH AFTER 48 HOURS Constitutional: Present moderate distress Head: Present normocephalic and atraumatic ENT: Present normal exam, normal oropharynx and mucous membranes moist Neck: Present normal inspection and full ROM Respiratory: Present respiratory distress, wheezes, diminished air movement and able to speak in complete sentences; Absent accessory muscle use Cardiac: Present S1/S2, Tachycardia and radial pulses present GI: Present soft and distention; Absent tenderness or guarding Skin: Present intact; Absent cyanosis or jaundice Neuro: Present alert, awake and oriented x 3 Extremities: Present normal inspection; Absent clubbing or cyanosis Psychiatric: Present normal affect and cooperative Assessment and Plan *Assessment and plan (1) COPD with exacerbation: Status: Acute Category: Medical Code(s): J44.1 - Chronic obstructive pulmonary disease with (acute) exacerbation (2) Abnormal screening CT of chest: Status: Acute Category: Medical Code(s): R93.89 - Abnormal findings on diagnostic imaging of other specified body structures (3) Multiple lung nodules on CT: Status: Acute Category: Medical Code(s): R91.8 - Other nonspecific abnormal finding of lung field (4) Acute and chronic respiratory failure: Status: Acute Category: Medical Code(s): J96.20 - Acute and chronic respiratory failure, unspecified whether with hypoxia or hypercapnia Plan #COPD exacerbation: #CAP: Greater than [id number] smoker, last smoked 2014. On chronic long-term oxygen therapy at 2 L. Most recenHospitalization was 12 months ago as per the patient has not received any antibiotics or steroids in the meantime 52-year-old male obstructive lung disease,, V1 VC ratio 38, V1 at 38% predicted, 1.62 L with significant reversibility from 2018 with repeat PFTs from 2020 showed only slight decline FEV1 at 32% predicted, 1.35 L, continue to show very significant reversibility at 39% in FEV1. CT chest revealed emphysematous changes bilateral micronodular opacities diffusely prominent in the lower lobes along with macronodules also seen in his old CAT scan from 2018 worsened now . Significant peripheral eosinophilia 9 from 100-500. Serum IgE within normal limits at 15 in 2018. Autoimmune work-up including ROSANNE, SSA, SSB, SCL 70, dsDNA anticentromere and anti-Flores antibodies negative from 2018. No recent prior positive sputum cultures available for review. Patient presents worsening respiratory distress and was initiated on Trelegy inhaler along with cefepime. Antibiotics were eventually de-escalated to cefepime upon consultation to cover community-acquired pneumonia and with initial prednisone 40 mg daily. Even the patient respiratory symptoms and oxygen recommends improving patient n
[2022-11-11 09:51] LABS: Basophils # 0.4 K/mm3 (0-0.2); Basophils % 1.4 % (0.1-2.0); Eosinophils # 0.2 K/mm3 (0.0-0.4); Eosinophils % 0.7 % (0.1-12.0); Hematocrit 40.6 % (42.0-52.0); Hemoglobin 12.7 g/dL (14.1-18.0); Lymphocytes # 2.5 K/mm3 (0.7-4.5); Mean Corpuscular HGB Conc 31.3 g/dL (31.8-35.4); Mean Corpuscular Hemoglobin 27.1 pg (27.0-31.2); Mean Corpuscular Volume 86.5 fl (80-94); Mean Platelet Volume 7.7 fl (7.4-10.4); Monocytes % 4.1 % (1.7-9.3); Neutrophils # 20.8 K/mm3 (1.8-7.8); Neutrophils % 83.7 % (37.0-80.0); Platelet Count 451 K/mm3 (142-424); Red Blood Count 4.69 M/mm3 (4.60-6.20); Red Cell Distribution Width 15.5 % (11.5-17.5); White Blood Count 24.8 K/mm3 (4.8-10.8)
[2022-11-11 09:52] LABS: MANUAL DIFFERENTIAL MANUAL DIFFERENTIAL (MANUAL DIFF)
[2022-11-11 10:13] LABS: Lymphocytes % 10 % (10-50); Monocytes % 9 % (2-9); Myelocytes % 1 (0-1); Neutrophils % 76 % (42-76); Total Cells Counted 100
[2022-11-11 10:14] LABS: Anisocytosis 1+; Hypochromasia 1+; Platelet Estimate Slight Increase; Poikilocytosis 1+
--- NOTE | 2022-11-11 15:00 | EXP.DC.SUM ---
General Admission date:: 11/08/22 Discharge date: 11/11/22 HPI HPI HPI: 52-year-old male with end-stage COPD who is oxygen requiring a neb required at home, has had frequent exacerbations. He came to my office today with weakness, fatigue, could not walk because of dyspnea and fatigue. Was found to be wheelchair-bound with O2 saturations in the 70s on room air. He had crackles and rhonchi in his left lung base and he was admitted to the hospital. Hospital Course Hospital Course Hospital Course: Patient was admitted, placed on aggressive antibiotic therapy, sputum cultures were done which was nondiagnostic and and hence pulmonary toilet was given. Pulmonary consult was obtained. They changed antibiotics to Levaquin and added low-dose p.o. steroids. They also investigated his previous work-up from Dr. Kendall. Patient improved slowly, labs improved. He returned back to his baseline oxygen requirement today. Patient will be discharged today, p.o. Levaquin, steroids and nebulizers will continue. Follow-up with pulmonary on November 14. I will see him in my office in 1 week. Exam Data for Last 24 hours Vital signs and Labs for Last 24 Hours: Temp Pulse Resp BP Pulse Ox FiO2 97.7 F 80 22 129/81 93 L 32 11/11/22 12:00 11/11/22 14:43 11/11/22 12:00 11/11/22 12:00 11/11/22 14:44 11/08/22 18:38 Laboratory Results - last 24 hr 11/11/22 09:40: WBC 24.8 H*, RBC 4.69, Hgb 12.7 L, Hct 40.6 L, MCV 86.5, MCH 27.1, MCHC 31.3 L, RDW 15.5, Plt Count 451 H, MPV 7.7, Neut % (Auto) 83.7 H, Lymph % (Auto) 10.0, [place] % (Auto) 4.1, Eos % (Auto) 0.7, Baso % (Auto) 1.4, Neut # (Auto) 20.8 H, Lymph # (Auto) 2.5, [place] # (Auto) 1.0, Eos # (Auto) 0.2, Baso # (Auto) 0.4 H, Total Counted 100, Neutrophils % (Manual) 76, Lymphocytes % (Manual) 10, Atypical Lymphs % 2.0, Monocytes % (Manual) 9, Metamyelocytes % 2.0 H, Myelocytes % 1, Platelet Estimate Slight increase, Hypochromasia 1+, Poikilocytosis 1+, Anisocytosis 1+ I & O for Last 24 hours: Intake & Output 11/09/22 11/10/22 11/11/22 11/12/22 11:59 11:59 11:59 11:59 Intake Total 360 / 360 1230 / 1230 1500 / 1500 480 / 480 Output Total 0 / 0 0 / 0 0 / 0 Balance 360 / 360 1230 / 1230 1500 / 1500 480 / 480 Weight 176 lb 9.6 oz 175 lb 0.4 oz 172 lb 1.6 oz Microbiology Reports for the Last 24 Hours: Microbiology 11/08/22 11:00 Sputum - Expectorated Sputum Gram Stain - Final 11/08/22 11:00 Sputum - Expectorated Sputum Sputum Culture - Final Normal Respiratory [place] 11/08/22 13:30 Blood Blood Culture - Preliminary NO GROWTH AFTER 48 HOURS 11/08/22 13:15 Blood Blood Culture - Preliminary NO GROWTH AFTER 48 HOURS Constitutional Constitutional: no acute distress *Routine HEENT Exam Head: Present normocephalic Eye: Present EOMI and PERRL ENT: Present mucous membranes moist *Routine Neck Exam Neck: Present supple; Absent lymphadenopathy *Routine Respiratory Exam Respiratory: Present decreased breath sounds, rhonchi and wheezes *Routine Cardiovascular Exam Cardiovascular: Present RRR *Routine Abdominal Exam Abdominal: Present soft and normoactive bowel sounds; Absent tenderness *Routine Extremities Exam Extremities: Absent cyanosis, clubbing or edema *Routine Skin Exam Skin: Present warm; Absent rash *Routine Neurological Exam Neurological: Present alert and oriented X3 Results Data Completed and Pending Labs on day of discharge: Labs from last 24 hours 11/11/22 09:40 WBC 24.8 H* RBC 4.69 Hgb 12.7 L Hct 40.6 L MCV 86.5 MCH 27.1 MCHC 31.3 L RDW 15.5 Plt Count 451 H MPV 7.7 Neut % (Auto) 83.7 H Lymph % (Auto) 10.0 [place] % (Auto) 4.1 Eos % (Auto) 0.7 Baso % (Auto) 1.4 Neut # (Auto) 20.8 H Lymph # (Auto) 2.5 [place] # (Auto) 1.0 Eos # (Auto) 0.2 Baso # (Auto) 0.4 H Total Counted 100 Neutrophils % (Manual) 76 Lymphocytes % (Manual) 10
--- NOTE | 2022-11-11 15:52 | HMH.PHAINT1 ---
Pharmacy Intervention Comments: DISCHARGE MEDICATION COUNSELING PROVIDED. DISCUSSED STOPPING THE LEVALBUTEROL AND STARTING THE FOLLOWING: -PREDNISONE (STEROID, DAILY, TAKE WITH FOOD, IN THE MORNING, INSOMNIA, INCREASED BLOOD SUGAR, UPSET STOMACH POSSIBLE) -LEVAQUIN (ANTIBIOTIC, DAILY, TAKE WITH FOOD, N/V/D POSSIBLE, RARE RISK OF TENDON RUPTURE WHEN PAIRED WITH STEROID, RISE SLOWLY AND DON'T MAKE SUDDEN, JERKY MOVEMENTS) -DUONEBS (FOR SHORTNESS OF BREATH, FOUR TIMES DAILY, RESTLESSNESS/JITTERY FEELING POSSIBLE) PATIENT VERBALIZED NO QUESTIONS AT THIS TIME.
[2022-11-13 18:08] LABS: Aspergillus flavus Negative (Neg:<1:1); Aspergillus fumigatus Negative (Neg:<1:1); Aspergillus niger Negative (Neg:<1:1); Blastomyces Antibody Negative (Neg:<1:1)
--- NOTE | 2022-11-14 12:57 | CARE MANAGER ---
Attempted post-discharge phone interview, no answer.
--- NOTE | 2022-11-15 12:48 | CARE MANAGER ---
Attempted to contact patient x2 related to hospital discharge. CARMEN left. RAQUEL Cochran
== END 2022-11-11 16:55 | disposition home or self-care (01) | DRG 190 ==
PROVIDERS: Internal Medicine Pulmonary Disease; Admitting Provider Internal Medicine Adolescent Medicine; Visit Provider Internal Medicine Adolescent Medicine
DX: J44.1 Chronic obstructive pulmonary disease with (acute) exacerbation (principal); F41.8 Other specified anxiety disorders; Z79.899 Other long term (current) drug therapy; Z99.81 Dependence on supplemental oxygen; Z99.3 Dependence on wheelchair; J96.20 Acute and chronic respiratory failure, unspecified whether with hypoxia or hypercapnia; Z87.891 Personal history of nicotine dependence; R91.8 Other nonspecific abnormal finding of lung field
CPT/HCPCS: 36415; 71045; 71046; 71250; 80048; 80053; 83605; 85007; 85025; 86606; 86612; 87040; 87070; 87116; 87186; 87205; 87206; 87220; 93005; 94640; 94760; 94761; C9803; J1956; U0003; U0005

== ENCOUNTER → 2022-11-14 12:39 | Outpatient (CLI) | payer OTHER, SELFPAY ==
--- NOTE | 2022-11-14 12:44 | XR_ITS ---
FINAL REPORT CLINICAL HISTORY: PNM COMPARISON: 11/10/2022 FINDINGS: 2 views of the chest were obtained . The heart is normal in size. The mediastinum is within normal limits. There is been slight improvement in bilateral interstitial opacities. Lingular and left lower lobe discoid opacities are similar to prior exam and may be related to scarring. There is underlying emphysema. There is a stable left pleural effusion versus scarring. There is no pneumothorax. Osseous structures are unremarkable. IMPRESSION: Slightly improved bilateral interstitial opacities which could represent improving interstitial edema or pneumonia. Reviewed, Interpreted and Dictated by Capri Perales MD Transcribed by Marie Carrasquillo Authenticated and [facility]
== END ==
PROVIDERS: PCP Internal Medicine Adolescent Medicine; Visit Provider Internal Medicine Pulmonary Disease
DX: J18.9 Pneumonia, unspecified organism (principal)
CPT/HCPCS: 71046

== ENCOUNTER → 2022-12-15 12:50 | Outpatient (CLI) | payer OTHER, SELFPAY ==
--- NOTE | 2022-12-15 13:38 | PC.NURSE ---
Pt partially completed PFT, unable to complete the second DLCO attempt. Pt pale, SOB, states he is not feeling well, is sweating. Pt states he has an appointment to see Dr. Manzano right after this PFT. 6 minute walk ordered but no attempted. Pt states he feels to weak and SOB to try to walk. Pt states he has home oxygen and has been wearing it everyday and through the night, he wears 2 to 3LPM. Albuterol 0.083% given via HHN, per protocol, Pt tolerated tx well.
== END ==
PROVIDERS: PCP Internal Medicine Adolescent Medicine; Visit Provider Internal Medicine Pulmonary Disease
DX: R06.09 Other forms of dyspnea (principal)
CPT/HCPCS: 94060; 94618; 94726; 94729